=== PATIENT | male | born 1945 | race Caucasian/White ===

== ENCOUNTER 2016-10-18 17:24 | Emergency (ER) | payer OTHER ==
[~2016-10-18] VITALS: Ht 167.6 cm; Wt 86.2 kg
[~2016-10-18 17:24] MED LIST: 'PARAFON FORTE500 M1 PO; ALBUTEROL0.09 MG/A2 INH; ALBUTEROL0.09 MG/Ac IH; ASPIRIN81 MG PO; CETIRIZINE10 MG PO; Eliquis PO; GLUCOPHAGE500 MG PO; GLYBURIDE5 MG PO; GUIAFENESIN PO; IBUPROFEN 30 M800 MG; INSULIN; LANTUS100 U/ML SC; LISINOPRIL20 MG PO; LOPRESSOR50 MG PO; LORATADINE10 MG PO; METFORMIN850 MG PO; MOTRIN400 MG PO; MOTRIN800 MG PO; MULTAQ400 MG PO; MULTIVITAMIN1 TA1 PO; NAPROSYN500 MG PO; NEURONTIN400 MG PO; NORCO 325 MG-51 TAB PO; NOVOLOG FLEX100 U/ML SC; NOVOLOG1 UNIT/0.0; OMEPRAZOLE20 MG PO; PRILOSEC20 MG PO; PSE PO; SIMVASTATIN20 MG PO; SPIRIVA18 MCG IH; SPIRIVA18 MCG INH; SYMBICORT; SYMBICORT1 AE1 INH; VIAGRA100 MG PO
[2016-10-18] MEDS ORDERED: CYCLOBENZAPRINE5 M3 PO (18:56)
[2016-10-18] MEDS ORDERED: NAPROSYN500 MG PO (18:56)
[2016-10-18] MEDS ORDERED: HYDROCODONE BIT1 T11 PO (18:56)
== END 2016-10-18 19:03 | disposition home or self-care (01) ==
LOC: ED 17:24
DX: M54.2 Cervicalgia (principal); R25.2 Cramp and spasm; F17.200 Nicotine dependence, unspecified, uncomplicated; Z79.899 Other long term (current) drug therapy; Z79.82 Long term (current) use of aspirin

== ENCOUNTER 2016-11-24 12:36 | Emergency (ER) | payer OTHER ==
[~2016-11-24] VITALS: Ht 167.6 cm; Wt 85.7 kg
[~2016-11-24 12:36] MED LIST changes: +CYCLOBENZAPRINE5 M3 PO; +HYDROCODONE BIT1 T11 PO; +MOTRIN 400 MG E4 TAB PO; -MOTRIN400 MG PO
[2016-11-24] MEDS ORDERED: SPIRIVA RESPIMAT4 GM INH (12:43)
[2016-11-24] MEDS ORDERED: SUNMARK OMEPRAZ20 M1 PO (12:46)
[2016-11-24] MEDS ORDERED: GRALISE300 M1 PO (12:46)
[2016-11-24] MEDS ORDERED: TUSSIN400 MG PO (12:47)
[2016-11-24 13:49] LABS: BASO # 0.1 10*3/uL (0.0-0.1); BASO % 0.9 % (0.0-1.0); EOS # 0.4 10*3/uL (0.0-0.4); EOS % 3.5 % (1.0-4.0); HEMATOCRIT 39.7 % (42.0-52.0); HEMOGLOBIN 12.9 g/dl (14.0-18.0); IG # 0.1 10*3/uL (0.0-0.1); LYMPH % 27.2 % (27.0-41.0); MEAN CELL VOLUME 96.8 fl (80.0-94.0); MEAN CORPUSCULAR HGB 31.5 pg (27.0-31.0); MEAN CORPUSCULAR HGB CONC 32.5 g/dl (33.0-37.0); MEAN PLATELET VOLUME 9.6 fl (9.6-12.3); MONO # 0.8 10*3/uL (0.1-1.0); MONO % 7.7 % (3.0-9.0); NEUT # 6.5 10*3/uL (2.3-7.9); PLATELET COUNT AUTOMATED 320 10*3/uL (130-400); RED CELL DISTRI WIDTH 13.5 % (0-14.5); WHITE BLOOD COUNT 10.9 10*3/uL (4.8-10.8)
[2016-11-24 13:57] LABS: ALKALINE PHOSPHATASE 158 U/L (45-117); BILIRUBIN, TOTAL 0.2 mg/dl (0.2-1.0); BUN 14 mg/dl (7-24); CARBON DIOXIDE 27 mmol/L (21-32); CHLORIDE 99 mmol/L (98-107); EST GLOM FILT AFRICAN AMERICAN > 60 ml/min; GLUCOSE 285 mg/dL (65-99); POTASSIUM 4.4 mmol/L (3.5-5.1); SGOT/AST 67 IU/L (3-35); SGPT/ALT 85 U/L (12-78); SODIUM 136 mmol/L (136-145); TOTAL PROTEIN 7.9 gm/dL (6.4-8.2)
[2016-11-24 16:18] LABS: BILIRUBIN NEGATIVE (NEGATIVE); BLOOD NEGATIVE (NEGATIVE); CLARITY CLEAR (CLEAR); COLOR YELLOW (YELLOW); GLUCOSE 2+ (NEGATIVE); KETONE NEGATIVE (NEGATIVE); LEUKO ESTERASE NEGATIVE (NEGATIVE); NITRITE NEGATIVE (NEGATIVE); PROTEIN TRACE (NEGATIVE); UROBILINOGEN 0.2 E.U./dl (0.2-1.0)
[2016-11-24 16:34] LABS: BACTERIA TRACE; EPITHELIAL CELLS 0-2; MUCOUS 1+; URINE REFLEX COMMENT NO (NO); WBC 0-2 wbc/hpf (0-5)
== END 2016-11-24 16:01 | disposition home or self-care (01) ==
LOC: ED 12:36
PROVIDERS: Emergency Medicine
DX: R73.9 Hyperglycemia, unspecified (principal); I48.91 Unspecified atrial fibrillation; E11.9 Type 2 diabetes mellitus without complications; F17.200 Nicotine dependence, unspecified, uncomplicated; Z79.82 Long term (current) use of aspirin; Z79.4 Long term (current) use of insulin; Z79.899 Other long term (current) drug therapy

== ENCOUNTER 2017-08-16 14:06 | Inpatient (IN) | payer OTHER ==
[2017-08-16] VITALS (7 sets, daily range): BP systolic 111–136; BP diastolic 68–83
[~2017-08-16] VITALS: Ht 167.6 cm; Wt 90.5 kg
[~2017-08-16 14:06] MED LIST changes: +GRALISE300 M1 PO; +LANTUS SOL100 UNIT/1 SQ; -LANTUS100 U/ML SC; +SPIRIVA RESPIMAT4 GM INH; +SUNMARK OMEPRAZ20 M1 PO; +TUSSIN400 MG PO
[2017-08-16 14:55] LABS: BASO # 0.1 10*3/uL (0.0-0.1); BASO % 0.8 % (0.0-1.0); EOS # 0.4 10*3/uL (0.0-0.4); EOS % 3.1 % (1.0-4.0); HEMATOCRIT 43.5 % (42.0-52.0); HEMOGLOBIN 13.9 g/dl (14.0-18.0); LYMPH # 2.6 10*3/uL (1.3-4.4); MEAN CELL VOLUME 88.1 fl (80.0-94.0); MEAN CORPUSCULAR HGB 28.1 pg (27.0-31.0); MEAN PLATELET VOLUME 9.3 fl (9.6-12.3); MONO # 0.8 10*3/uL (0.1-1.0); MONO % 6.2 % (3.0-9.0); NEUT # 8.9 10*3/uL (2.3-7.9); NEUT % 69.4 % (47.0-73.0); PLATELET COUNT AUTOMATED 341 10*3/uL (130-400); RED BLOOD COUNT 4.94 10*6/uL (4.50-5.90); WHITE BLOOD COUNT 12.8 10*3/uL (4.8-10.8)
[2017-08-16 15:03] LABS: ACT PARTIAL THROMBO TIME 27.2 SECONDS (20.8-31.5)
[2017-08-16 15:14] LABS: ALBUMIN 3.2 gm/dl (3.1-4.5); ALKALINE PHOSPHATASE 121 U/L (45-117); BUN 14 mg/dl (7-24); CHLORIDE 96 mmol/L (98-107); LIPASE 116 U/L (73-393); POTASSIUM 3.6 mmol/L (3.5-5.1); SGOT/AST 30 IU/L (3-35); SGPT/ALT 36 U/L (12-78); SODIUM 134 mmol/L (136-145)
[2017-08-16 15:18] LABS: TROPONIN I < 0.015 ng/ml (<0.045)
[2017-08-17] VITALS: BP 122/58
[2017-08-17 06:39] LABS: BASO # 0.1 10*3/uL (0.0-0.1); BASO % 0.8 % (0.0-1.0); EOS # 0.4 10*3/uL (0.0-0.4); EOS % 3.4 % (1.0-4.0); HEMATOCRIT 41.1 % (42.0-52.0); HEMOGLOBIN 13.2 g/dl (14.0-18.0); LYMPH # 2.2 10*3/uL (1.3-4.4); LYMPH % 17.8 % (27.0-41.0); MEAN CELL VOLUME 87.8 fl (80.0-94.0); MEAN CORPUSCULAR HGB 28.2 pg (27.0-31.0); MEAN CORPUSCULAR HGB CONC 32.1 g/dl (33.0-37.0); MEAN PLATELET VOLUME 9.5 fl (9.6-12.3); MONO # 0.9 10*3/uL (0.1-1.0); MONO % 7.3 % (3.0-9.0); NEUT # 8.7 10*3/uL (2.3-7.9); NEUT % 70.2 % (47.0-73.0); PLATELET COUNT AUTOMATED 328 10*3/uL (130-400); RED BLOOD COUNT 4.68 10*6/uL (4.50-5.90); RED CELL DISTRI WIDTH 15.3 % (0-14.5); WHITE BLOOD COUNT 12.4 10*3/uL (4.8-10.8)
[2017-08-17 07:09] LABS: ALBUMIN 2.9 gm/dl (3.1-4.5); ALKALINE PHOSPHATASE 114 U/L (45-117); BUN 11 mg/dl (7-24); CHLORIDE 101 mmol/L (98-107); CHOLESTEROL 171 mg/dL (<200); CREATININE 0.75 mg/dL (0.70-1.30); FREE T4 1.15 ng/dl (0.76-1.46); HDL CHOLESTEROL 24 mg/dl (40-60); LDL CHOLESTEROL 121 mg/dL (9-159); PHOSPHOROUS 3.3 mg/dL (2.5-4.9); POTASSIUM 3.9 mmol/L (3.5-5.1); SGOT/AST 26 IU/L (3-35); SGPT/ALT 32 U/L (12-78); SODIUM 137 mmol/L (136-145); TOTAL PROTEIN 8.1 gm/dL (6.4-8.2); TRIGLYCERIDES 130 mg/dl (<150); VLDL CHOLESTEROL 26 mg/dL (6-40)
[2017-08-17 07:59] LABS: VITAMIN D, 25-HYDROXY 20.5 ng/mL (30-100)
[2017-08-17 08:00] VITALS: BP 125/67
[2017-08-17] MEDS ORDERED: BUPROPION HCL100 M2 PO (11:33)
[2017-08-17] MEDS ORDERED: ARICEPT10 M1 PO (11:35)
[2017-08-17] MEDS ORDERED: [UNRECOGNIZED DRUG - OTHER] T (11:35)
[2017-08-17] MEDS ORDERED: LOPRESSOR50 M1 PO (11:38)
[2017-08-17] MEDS ORDERED: NAMENDA5 M1 PO (11:38)
[2017-08-17] MEDS ORDERED: ONGLYZA5 MG PO (11:39)
[2017-08-17 12:00] VITALS: BP 130/76
[2017-08-17 16:00] VITALS: BP 122/73
[2017-08-17 20:00] VITALS: BP 148/69
[2017-08-18] VITALS: BP 122/72
[2017-08-18 05:57] LABS: BASO # 0.1 10*3/uL (0.0-0.1); EOS # 0.4 10*3/uL (0.0-0.4); EOS % 3.8 % (1.0-4.0); HEMATOCRIT 41.3 % (42.0-52.0); HEMOGLOBIN 13.5 g/dl (14.0-18.0); LYMPH # 2.6 10*3/uL (1.3-4.4); LYMPH % 24.3 % (27.0-41.0); MEAN CELL VOLUME 87.9 fl (80.0-94.0); MEAN CORPUSCULAR HGB 28.7 pg (27.0-31.0); MEAN CORPUSCULAR HGB CONC 32.7 g/dl (33.0-37.0); MEAN PLATELET VOLUME 9.4 fl (9.6-12.3); MONO # 0.8 10*3/uL (0.1-1.0); MONO % 7.5 % (3.0-9.0); NEUT # 6.6 10*3/uL (2.3-7.9); NEUT % 62.8 % (47.0-73.0); PLATELET COUNT AUTOMATED 324 10*3/uL (130-400); RED CELL DISTRI WIDTH 15.3 % (0-14.5); WHITE BLOOD COUNT 10.6 10*3/uL (4.8-10.8)
[2017-08-18 08:00] VITALS: BP 130/75
[2017-08-18 12:00] VITALS: BP 128/69
[2017-08-18] MEDS ORDERED: VITAMIN D-32000 UNIT PO (14:32)
[2017-08-18] MEDS ORDERED: CEPACOL SORE T1 EACH MM (14:32)
[2017-08-18] MEDS ORDERED: LEVAQUIN500 M2 PO (14:33)
[2017-08-18] MEDS ORDERED: MUCINEX DM ER1 EACH PO (14:33)
== END 2017-08-18 15:38 | disposition home or self-care (01) | DRG 871 ==
LOC: ED 14:06 → EDHOLD 16:36 → 5E 16:36 → EDHOLD 17:00 → 5E 17:06
PROVIDERS: Emergency Medicine; Internal Medicine Hospice and Palliative Medicine
DX: A41.9 Sepsis, unspecified organism (principal); J96.01 Acute respiratory failure with hypoxia; E11.42 Type 2 diabetes mellitus with diabetic polyneuropathy; J15.6 Pneumonia due to other Gram-negative bacteria; I48.1 Persistent atrial fibrillation; E11.40 Type 2 diabetes mellitus with diabetic neuropathy, unspecified; E87.1 Hypo-osmolality and hyponatremia; E44.1 Mild protein-calorie malnutrition; J44.0 Chronic obstructive pulmonary disease with (acute) lower respiratory infection; E11.65 Type 2 diabetes mellitus with hyperglycemia; E87.8 Other disorders of electrolyte and fluid balance, not elsewhere classified; R65.20 Severe sepsis without septic shock; Z96.1 Presence of intraocular lens; K21.9 Gastro-esophageal reflux disease without esophagitis; J30.2 Other seasonal allergic rhinitis; F17.200 Nicotine dependence, unspecified, uncomplicated; I10 Essential (primary) hypertension; E78.2 Mixed hyperlipidemia; D64.9 Anemia, unspecified; E66.09 Other obesity due to excess calories; Z68.32 Body mass index [BMI] 32.0-32.9, adult; Z79.82 Long term (current) use of aspirin; Z79.899 Other long term (current) drug therapy; Z90.49 Acquired absence of other specified parts of digestive tract; Z71.6 Tobacco abuse counseling; Z98.49 Cataract extraction status, unspecified eye; Z79.4 Long term (current) use of insulin; Z79.51 Long term (current) use of inhaled steroids; Z80.1 Family history of malignant neoplasm of trachea, bronchus and lung; Z82.49 Family history of ischemic heart disease and other diseases of the circulatory system

== ENCOUNTER 2017-12-06 11:15 | Inpatient (IN) | payer OTHER ==
[~2017-12-06] VITALS: Ht 167.6 cm; Wt 89.9 kg
[2017-12-06] VITALS (7 sets, daily range): BP systolic 149–169; BP diastolic 67–89
--- NOTE | ~2017-12-06 | CON ---
[place], [place] REPORT OF CONSULTATION [id number] UN[facility] #: [id number] ROOM: 506 DOCTOR: CARMENCITA PITTMAN MDAUBREY BIRTHDATE: [birth year] DOS: 12/07/2017 PULMONARY CONSULTATION, EVALUATION AND MANAGEMENT REASON FOR CONSULTATION: To assess the patient's current abnormal symptoms. Assessment for shortness of breath and others. HISTORY OF PRESENT ILLNESS: This is a 72-year-old white male patient who was admitted to the hospital under care of the hospitalist service who was asked to be seen by me. The patient reported symptoms of having increased shortness of breath a little over a month. Shortness of breath has been noted over the past 1 month, which has been noted with gradual increase and getting worse. The patient was also noted with general weakness and fatigue. He was reporting symptoms of having cough with white sputum expectoration, but there was no hemoptysis reported by the patient. He has not been noted any symptoms of wheezing. The patient denies symptoms of chest pain with that. The patient came into the hospital for further assessment. He was also reported some GI symptoms. REVIEW OF SYSTEMS: CONSTITUTIONAL SYMPTOMS: Fatigue and tiredness noted without any symptoms of fever or chills. EYES: Denies burning, discharge, redness, or decreased visual acuity. EARS, NOSE, AND THROAT SYMPTOMS: Denies sore throat, hoarseness, otalgia, postnasal drainage, or epistaxis. CARDIOVASCULAR SYSTEM: Noted with increasing edema of the lower extremities and the ankles recently. Denies symptoms of palpitation or anginal pain. GASTROINTESTINAL SYMPTOMS: Reports "hardening of the abdomen," but there were no symptoms of nausea, vomiting, diarrhea, abdominal pain, hematemesis, melena, hematochezia, dysphagia, or abnormal weight loss reported. GENITOURINARY SYMPTOMS: No dysuria, urinary incontinence, or hematuria. MUSCULOSKELETAL: No acute joint pain, redness, or tenderness. SKIN: Denies any abnormal lesions or rashes. CENTRAL NERVOUS SYSTEM: No dizziness, headache, diplopia, focal neurologic deficit, or tingling sensation. Remaining systems were reviewed. They were noted all negative. PAST MEDICAL HISTORY: The patient was known with: 1. History of chronic obstructive pulmonary disease. 2. Mixed hyperlipidemia. 3. Peripheral neuropathy. 4. Paroxysmal atrial fibrillation. 5. Nicotine dependence. 6. Type 2 diabetes mellitus. 7. History of peripheral neuropathy. 8. Gastroesophageal reflux. 9. Vitamin D deficiency. PAST SURGICAL HISTORY: 1. Lumbar laminectomy. [place], [place] REPORT OF CONSULTATION NAME: YANA MONTOYA UNIT #: [id number] ROOM: [facility] DOCTOR: AUBREY GARDNER MD BIRTHDATE: [birth year] 2. Left forearm fracture repair. 3. Appendectomy. 4. Cataract extraction with lens implantation bilaterally. 5. Tonsillectomy as a child. SOCIAL HISTORY: The patient stated that he lives at home. , has 2 children. He was using about 4 cans of beers a day. Tobacco use noted since teenager about a pack of cigarettes per day to half a pack of cigarettes at this time. FAMILY HISTORY: Father at 60 due to complication of lung cancer. Mother with complication related to chronic alcoholism at the age of 46-year-old, also known with coronary artery disease and myocardial infarction. HOME MEDICATIONS: Reported as use of vitamin D, Mucinex DM, Proventil HFA, Motrin, Lantus insulin, BuSpar, Aricept, Namenda, metoprolol tartrate, Onglyza, pravastatin, glipizide, vitamin B12, multivitamin with iron and folic acid combination, lisinopril, aspirin, cetirizine, Spiriva, gabapentin, and omeprazole. DRUG ALLERGIES: REPORTED ALLERGY TO HYDROCHLOROTHIAZIDE. PHYSICAL EXAMINATION: GENERAL: This is a 72-year-old male who has been currently lying in the bed without any acute distress. VITAL SIGNS: The patient's height was recorded as 5 feet 6 inches, weight of 92 kg, BMI 32.7. The patient noted as normal temperature, respiratory rate 24-16, heart rate of 63-85, blood pressure 169/76-144/69. Pulse oxygen saturation on 4 liters nasal cannula 94% saturation. HEENT: Head was atraumatic. Eyes were noted without any acute icterus. NECK: Supple. Oral mucosa was moist. CARDIOVASCULAR: S1, S2 is audible. LUNGS: The patient was noted with decreased breath sounds in the lungs bilaterally noted on the left and the right side with scattered crackles in the lungs noted diffusely. There was no wheezing heard. ABDOMEN: Noted with [id number] distention. Bowel sounds present. There was no tenderness. EXTREMITIES: The patient was noted without any acute edema at this time of examination. VISIBLE SKIN: No lesions or rashes. MUSCULOSKELETAL: Without any acute deformities. CENTRAL NERVOUS SYSTEM: Cranial nerves 2-12 intact. No focal deficit. LABORATORY DATA: CBC on admission of 12/06/2017, WBC count 13.4, hemoglobin 12.3, hematocrit normal, platelet count normal. Lactic acid 2.1 on admission yesterday. CMP of the patient on 12/06/2017, glucose 157, BUN and creatinine were normal. The PT and PTT were noted as normal PT and PTT yesterday. Arterial blood gas that was done yesterday, pH is 7.36, pCO2 of 53.9, pO2 of 56.5 on 2 liters nasal cannula. CBC that was done this morning, WBC count 12.3, hemoglobin 12.5, platelet count 412,000. CMP this morning, BUN 26, creatinine [place], [place] REPORT OF CONSULTATION NAME: YANA MONTOYA UNIT #: [id number] ROOM: [facility] DOCTOR: CARMENCITA PITTMAN MD,[facility] BIRTHDATE: [birth year] normal, glucose 267. The chest x-ray that was reviewed previously on 08/16/2017 showed mild cardiomegaly and hyperinflation changes of COPD. The chest x-ray that was done for the patient on 12/06/2017 was noted with loculated pleural fluid noted in the left side with increased interstitial markings bilaterally, possibly a patchy infiltration and interstitial lung disease would be considered. Right lung appeared to be otherwise clear. Changes of COPD were observed. Film was also noted partially rotated towards the right. IMPRESSION: 1. The patient will be currently admitted to the hospital with ongoing respiratory symptoms at this time with current pleural fluid in the left side noted with interstitial lung disease. Possible consideration for congestive heart failure or other etiologies to be considered at the present time as well including for malignancy, pneumonia and all of the above. 2. Long-term tobacco use. 3. Family history of lung cancer was noted in his dad. 4. History of long-term nicotine dependence as well. 5. Chronic obstructive pulmonary disease was also noted with acute exacerbation on current admission. 6. Possibility of congestive heart failure with peripheral edema. Rather right or left-sided heart failure has been considered. 7. Acute hypoxic respiratory failure secondary to all of the above. PLAN OF MANAGEMENT: The patient will be continued on diuretics and corticosteroids. Monitor hyperglycemia related to corticosteroid use and history of diabetes mellitus. Sputum for Gram stain and culture. CT scan of the chest was ordered for the patient as a CTA of the chest for more clear assessment of underlying lung problem and for further assessment and recommendation accordingly. Bronchodilator to be continued. Avoid excessive diuretic use for the patient to prevent any worsening of the kidney function. Monitor electrolytes. DVT prophylaxis. Nicotine replacement patches will be ordered for the patient as well. Other additional treatment changes and assessment will be done based on progression of current illness and available new data for this patient results including CT scan of the chest, which was ordered this morning to be done this afternoon for patient with intravenous contrast. Thank you for allowing me to participate in the care of this patient. [place], [place] REPORT OF CONSULTATION NAME: YANA MONTOYA UNIT #: [id number] ROOM: 506 DOCTOR: AUBREY GARDNER MD BIRTHDATE: [birth year] AUBREY TSE MD CM:CONSTR:REPORT OF CONSULTATION 1414 12/18/17 1026 interface
--- NOTE | ~2017-12-06 | EKG ---
[place], [place] ELECTROCARDIOGRAM REPORT NAME: YANA MONTOYA UNIT #: [id number] ROOM: [facility] DOCTOR: JOE DRAFT REPORT BIRTHDATE: [birth year] [facility] Test Date: 2017-12-06 Test Time: 11:45:18 Pat Name: YANA MONTOYA Department: Room: Gender: [employer] Captain: : 1945 Requested By: ALBINA RAI PA-C Order Number: [id number] Reading MD: Homer Martínez MD Measurements Intervals [place] Rate: 70 P: 62 IN: 247 QRS: 34 QRSD: 110 T: 59 QT: 422 QTc: 456 Interpretive Statements Sinus rhythm with 1st degree AVB Electronically Signed On 12-08-2017 11:02:20 PDT by Homer Martínez MD CM:EKGRPT:ELECTROCARDIOGRAM REPORT [id number] ALBINA RAI PA-C EPIPHANY DRAFT REPORT ALBINA RAI PA-C
--- NOTE | ~2017-12-06 | PR ---
[place], [place] PROGRESS NOTE NAME: YANA MONTOYA [facility] #: [id number] UNIT #: [id number] ROOM: 506 DOCTOR: CARMENCITA PITTMAN MDAUBREY BIRTHDATE: [birth year] DOS: 12/08/2017 PULMONARY PROGRESS NOTE SUBJECTIVE: The patient was seen and examined on 12/08/2017. He has been noted comfortable. He has been still noted with general weakness. He continues with symptoms of shortness of breath. Cough has been noted mild intermittently. There were no symptoms of chest pain or any hemoptysis. Denies symptoms of abdominal pain. Denies symptoms of nausea, vomiting or any abdominal pain. The patient denies symptoms of hematuria or dizziness. General weakness and fatigue were still noted. Remaining systems were reviewed, they were noted all negative. OBJECTIVE: VITAL SIGNS: Showed normal temperature, respiratory rate 18, heart rate 85. Blood pressure 122/53 to 109/72. Pulse oxygen saturation of the patient on 4-1/2 liters nasal cannula was 94-95% saturation. HEENT: Shows head was atraumatic, eyes nonicterus. NECK: Supple. CARDIOVASCULAR: S1, S2 audible. LUNGS: The patient was noted with decreased breath sounds, left side of the chest. Mild to moderate decreased air entry otherwise noted. ABDOMEN: Soft, nontender. Bowel sounds present. EXTREMITIES: Without any acute edema. No clubbing or cyanosis. CENTRAL NERVOUS SYSTEM: No gross focal neurologic deficit. MUSCULOSKELETAL: Noted no deformity. SKIN: No lesions or rashes. LABORATORY AND DIAGNOSTIC DATA: Echocardiogram that was completed yesterday was reported by the radiologist as stage 1 abnormal relaxation pattern, diastolic dysfunction, left ventricular ejection of 60% without any major valvular abnormalities. CT of the chest was completed yesterday without pulmonary embolism, multiple nodules noted, different sizes with index nodule measured for this patient in the right upper lobe 1.3 cm and at least one of the nodules noted cavitary. The pleural fluid was noted loculated, significant compression and atelectasis in left lower lobe. Lymphadenopathy was also noted. IMPRESSION: 1. The patient with the current finding consistent highly with metastatic malignancy, may be originating from the lung; however, other sources of metastatic disease cannot be excluded. 2. Current loculated pleural fluid, most likely a malignant process and a pneumonia combination, both would be considered. 3. Overall illness of the patient which has been ongoing for several weeks does explain the current CT scan findings. PLAN OF MANAGEMENT: The patient needs to be transferred to another facility for VATS procedure and also further appropriate workup for the current suspected malignancy and the left pleural fluid. Case will be discussed with the primary [place], [place] PROGRESS NOTE NAME: YANA MONTOYA UNIT #: [id number] ROOM: 506 DOCTOR: CARMENCITA PITTMAN MD,AUBREY BIRTHDATE: [birth year] care attending of this patient for making arrangements of discharge. The patient agreed to be transferred to [facility] for further care. AUBREY TSE MD CM:PNTRANS [id number] AUBREY PITTMAN MD 12/08/17 0920 interface
[~2017-12-06 11:15] MED LIST changes: -ALBUTEROL0.09 MG/Ac IH; +ARICEPT10 M1 PO; +BUPROPION HCL100 M2 PO; +CEPACOL SORE T1 EACH MM; +LEVAQUIN500 M2 PO; +LOPRESSOR50 M1 PO; +MUCINEX DM ER1 EACH PO; +NAMENDA5 M1 PO; +ONGLYZA5 MG PO; +PROVENTIL HFA6.7 GM INH; +VITAMIN D-32000 UNIT PO; +[UNRECOGNIZED DRUG - OTHER] T
[2017-12-06 11:50] LABS: BASO # 0.1 10*3/uL (0.0-0.1); BASO % 0.7 % (0.0-1.0); EOS # 0.2 10*3/uL (0.0-0.4); EOS % 1.4 % (1.0-4.0); HEMATOCRIT 41.3 % (42.0-52.0); HEMOGLOBIN 12.3 g/dl (14.0-18.0); LYMPH # 2.1 10*3/uL (1.3-4.4); LYMPH % 15.4 % (27.0-41.0); MEAN CELL VOLUME 86.2 fl (80.0-94.0); MEAN CORPUSCULAR HGB 25.7 pg (27.0-31.0); MEAN CORPUSCULAR HGB CONC 29.8 g/dl (33.0-37.0); MEAN PLATELET VOLUME 9.4 fl (9.6-12.3); MONO # 0.8 10*3/uL (0.1-1.0); MONO % 5.6 % (3.0-9.0); NEUT # 10.2 10*3/uL (2.3-7.9); NEUT % 76.5 % (47.0-73.0); PLATELET COUNT AUTOMATED 372 10*3/uL (130-400); RED BLOOD COUNT 4.79 10*6/uL (4.50-5.90); RED CELL DISTRI WIDTH 17.8 % (0-14.5); WHITE BLOOD COUNT 13.4 10*3/uL (4.8-10.8)
[2017-12-06 11:59] LABS: ACT PARTIAL THROMBO TIME 29.2 SECONDS (20.8-31.5)
[2017-12-06 12:06] LABS: ALKALINE PHOSPHATASE 105 U/L (45-117); BUN 16 mg/dl (7-24); CHLORIDE 102 mmol/L (98-107); CREATININE 0.96 mg/dL (0.70-1.30); POTASSIUM 3.6 mmol/L (3.5-5.1); SGOT/AST 22 IU/L (3-35); SGPT/ALT 14 U/L (12-78); SODIUM 141 mmol/L (136-145); TOTAL PROTEIN 8.6 gm/dL (6.4-8.2)
[2017-12-06 12:08] LABS: TROPONIN I < 0.015 ng/ml (<0.045)
[2017-12-06 13:38] LABS: ABG BASE EXCESS 3.8 mmol/L (-2.0-2.0); ABG O2 SATURATION 88.8 % (95-97); ARTERIAL BLOOD GAS PCO2 53.9 mmHg (35-45); ARTERIAL BLOOD GAS PH 7.362 (7.35-7.45); ARTERIAL BLOOD GAS PO2 56.5 mmHg (80-90)
[2017-12-06 14:04] LABS: BILIRUBIN NEGATIVE (NEGATIVE); BLOOD NEGATIVE (NEGATIVE); CLARITY CLEAR (CLEAR); COLOR YELLOW (YELLOW); GLUCOSE NEGATIVE (NEGATIVE); KETONE NEGATIVE (NEGATIVE); LEUKO ESTERASE NEGATIVE (NEGATIVE); NITRITE NEGATIVE (NEGATIVE); UROBILINOGEN 0.2 E.U./dl (0.2-1.0)
[2017-12-06 14:24] LABS: EPITHELIAL CELLS 0-2; WBC 0-2 wbc/hpf (0-5)
[2017-12-06] MEDS ORDERED: PRAVASTATIN SOD10 MG PO (14:56)
[2017-12-06] MEDS ORDERED: EUCERIN, DERMA120 GM PO (15:00)
[2017-12-06] MEDS ORDERED: MUCUS RELIEF400 MG PO (15:02)
[2017-12-06] MEDS ORDERED: GLUCOTROL10 MG PO (15:03)
[2017-12-06] MEDS ORDERED: VITAMIN B-12100 MCG PO (15:04)
[2017-12-06] MEDS ORDERED: CENTRUM ADULTS1 EACH PO (15:05)
[2017-12-07] VITALS: BP 144/68
[2017-12-07 06:27] LABS: BASO % 0.1 % (0.0-1.0); HEMATOCRIT 41.6 % (42.0-52.0); HEMOGLOBIN 12.5 g/dl (14.0-18.0); LYMPH # 0.8 10*3/uL (1.3-4.4); LYMPH % 6.7 % (27.0-41.0); MEAN CELL VOLUME 84.6 fl (80.0-94.0); MEAN CORPUSCULAR HGB 25.4 pg (27.0-31.0); MEAN PLATELET VOLUME 9.6 fl (9.6-12.3); MONO # 0.7 10*3/uL (0.1-1.0); NEUT # 10.7 10*3/uL (2.3-7.9); NEUT % 86.7 % (47.0-73.0); PLATELET COUNT AUTOMATED 412 10*3/uL (130-400); RED BLOOD COUNT 4.92 10*6/uL (4.50-5.90); RED CELL DISTRI WIDTH 17.4 % (0-14.5); WHITE BLOOD COUNT 12.3 10*3/uL (4.8-10.8)
[2017-12-07 06:38] LABS: ALBUMIN 2.9 gm/dl (3.1-4.5); ALKALINE PHOSPHATASE 106 U/L (45-117); CHLORIDE 98 mmol/L (98-107); CHOLESTEROL 142 mg/dL (<200); CREATININE 1.17 mg/dL (0.70-1.30); HDL CHOLESTEROL 31 mg/dl (40-60); LDL CHOLESTEROL 94 mg/dL (9-159); PHOSPHOROUS 3.2 mg/dL (2.5-4.9); POTASSIUM 3.9 mmol/L (3.5-5.1); SGOT/AST 9 IU/L (3-35); SGPT/ALT 14 U/L (12-78); SODIUM 139 mmol/L (136-145); TOTAL PROTEIN 8.8 gm/dL (6.4-8.2); TRIGLYCERIDES 84 mg/dl (<150); VLDL CHOLESTEROL 17 mg/dL (6-40)
[2017-12-07 06:49] LABS: BUN 26 mg/dl (7-24)
[2017-12-07 08:00] VITALS: BP 150/74
[2017-12-07 12:00] VITALS: BP 154/79
[2017-12-07 16:00] VITALS: BP 148/86
[2017-12-07 20:00] VITALS: BP 109/72
[2017-12-08] VITALS: BP 122/53
[2017-12-08 08:00] VITALS: BP 115/66
[2017-12-08 08:31] LABS: BASO % 0.1 % (0.0-1.0); HEMATOCRIT 47.5 % (42.0-52.0); LYMPH # 1.6 10*3/uL (1.3-4.4); LYMPH % 7.9 % (27.0-41.0); MEAN CELL VOLUME 85.9 fl (80.0-94.0); MEAN CORPUSCULAR HGB 25.3 pg (27.0-31.0); MEAN CORPUSCULAR HGB CONC 29.5 g/dl (33.0-37.0); MEAN PLATELET VOLUME 9.5 fl (9.6-12.3); MONO # 1.2 10*3/uL (0.1-1.0); MONO % 6.1 % (3.0-9.0); NEUT # 16.9 10*3/uL (2.3-7.9); NEUT % 85.3 % (47.0-73.0); PLATELET COUNT AUTOMATED 500 10*3/uL (130-400); RED BLOOD COUNT 5.53 10*6/uL (4.50-5.90); RED CELL DISTRI WIDTH 17.7 % (0-14.5); WHITE BLOOD COUNT 19.8 10*3/uL (4.8-10.8)
[2017-12-08 08:48] LABS: BUN 27 mg/dl (7-24); CHLORIDE 94 mmol/L (98-107); CREATININE 1.05 mg/dL (0.70-1.30); POTASSIUM 3.8 mmol/L (3.5-5.1); SODIUM 138 mmol/L (136-145)
== END 2017-12-08 11:03 | disposition short-term general hospital (02) | DRG 871 ==
LOC: ED 11:15 → 5E 13:08 → EDHOLD 13:08 → 5E 13:13
PROVIDERS: Internal Medicine; Physician Assistant
DX: A41.9 Sepsis, unspecified organism (principal); J96.21 Acute and chronic respiratory failure with hypoxia; J90 Pleural effusion, not elsewhere classified; J18.1 Lobar pneumonia, unspecified organism; E87.2 Acidosis; J91.8 Pleural effusion in other conditions classified elsewhere; E11.40 Type 2 diabetes mellitus with diabetic neuropathy, unspecified; B35.3 Tinea pedis; J96.22 Acute and chronic respiratory failure with hypercapnia; E44.1 Mild protein-calorie malnutrition; J44.1 Chronic obstructive pulmonary disease with (acute) exacerbation; J44.0 Chronic obstructive pulmonary disease with (acute) lower respiratory infection; R65.20 Severe sepsis without septic shock; I44.0 Atrioventricular block, first degree; D63.8 Anemia in other chronic diseases classified elsewhere; I50.9 Heart failure, unspecified; I11.0 Hypertensive heart disease with heart failure; R91.1 Solitary pulmonary nodule; Z96.1 Presence of intraocular lens; K21.9 Gastro-esophageal reflux disease without esophagitis; E78.2 Mixed hyperlipidemia; I48.0 Paroxysmal atrial fibrillation; E66.8 Other obesity; Z60.2 Problems related to living alone; Z79.899 Other long term (current) drug therapy; Z79.4 Long term (current) use of insulin; Z79.82 Long term (current) use of aspirin; Z90.49 Acquired absence of other specified parts of digestive tract; Z90.89 Acquired absence of other organs; Z98.49 Cataract extraction status, unspecified eye; Z82.49 Family history of ischemic heart disease and other diseases of the circulatory system; Z71.6 Tobacco abuse counseling; Z72.0 Tobacco use; Z80.1 Family history of malignant neoplasm of trachea, bronchus and lung; Z81.1 Family history of alcohol abuse and dependence; Z88.8 Allergy status to other drugs, medicaments and biological substances; Z68.32 Body mass index [BMI] 32.0-32.9, adult

== ENCOUNTER 2018-06-02 01:43 | Inpatient (IN) | payer OTHER ==
[~2018-06-02] VITALS: Ht 167.6 cm; Wt 84.0 kg
--- NOTE | ~2018-06-02 | EKG ---
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
[~2018-06-02 01:43] MED LIST changes: +CENTRUM ADULTS1 EACH PO; +CHANTIX1 M1 PO; +EUCERIN, DERMA120 GM PO; +GLUCOTROL10 MG PO; +K-TAB20 MEQ PO; +LASIX40 MG PO; +LEVAQUIN750 M1 PO; +LISINOPRIL10 M1 PO; -LISINOPRIL20 MG PO; +MUCUS RELIEF400 MG PO; +PRAVASTATIN SOD10 MG PO; +PREDNISONE10 MG PO; +VITAMIN B-12100 MCG PO
[2018-06-02 01:45] VITALS: BP 95/55
[2018-06-02 02:42] LABS: BASO # 0.1 10*3/uL (0.0-0.1); BASO % 0.6 % (0.0-1.0); EOS # 0.5 10*3/uL (0.0-0.4); EOS % 2.8 % (1.0-4.0); HEMOGLOBIN 12.1 g/dl (14.0-18.0); LYMPH # 2.6 10*3/uL (1.3-4.4); LYMPH % 14.9 % (27.0-41.0); MEAN CELL VOLUME 85.9 fl (80.0-94.0); MEAN CORPUSCULAR HGB 26.7 pg (27.0-31.0); MEAN PLATELET VOLUME 9.1 fl (9.6-12.3); MONO # 1.1 10*3/uL (0.1-1.0); MONO % 6.2 % (3.0-9.0); PLATELET COUNT AUTOMATED 458 10*3/uL (130-400); RED BLOOD COUNT 4.54 10*6/uL (4.50-5.90); RED CELL DISTRI WIDTH 19.4 % (0-14.5); WHITE BLOOD COUNT 17.3 10*3/uL (4.8-10.8)
--- NOTE | 2018-06-02 02:48 | NUR ---
TREMORS NOTED TO BILATERAL UPPER EXTREMITIES. PATIENT STATES THIS IS A NEW ONSERT THAT STARTED A FEW DAYS AGO.
[2018-06-02 02:56] LABS: ALBUMIN 3.1 gm/dl (3.1-4.5); CREATININE 2.4 mg/dL (0.70-1.30); POTASSIUM 4.9 mmol/L (3.5-5.1); TOTAL PROTEIN 8.1 gm/dL (6.4-8.2)
--- NOTE | 2018-06-02 04:38 | NUR ---
PATIENT PROVIDED A URINAL. WAS UNABLE TO GIVE A URINE SPECIMEN AT THIS TIME.
[2018-06-02 05:00] VITALS: BP 106/60; BP 107/91
--- NOTE | 2018-06-02 05:00 | NUR ---
A 72, admitted to , under the services of ROSSANA Hunter DO with a diagnosis of ACUTE RENAL FAILURE UNABLE TO AMBULATE. Chief complaint is AMBULATED FROM CAB WITH CANE TO TRIAGE. PT. STATED "I CAN'T WALK" STARTED A COUPLE DAYS AGO PER PATIENT JUST GETTING WORSE.. Patient arrived via stretcher from ER. Monitor applied. Initial assessment completed. Vital signs taken and recorded. ROSSANA HUNTER DO notified of admission to the unit. Orders received. See assessment for past medical history, medications and allergies. Patient and/or family oriented to unit. [facility] visitation policy reviewed. Clothing/patient valuable form completed. REJI HOLMAN
--- NOTE | 2018-06-02 06:34 | NUR ---
SPOKE WITH DR ROMERO ABOUT THE HEPARIN BEING ORDERED. INFORMED NO APTT ORDERED. WILL ORDER LAB WORK PRIOR TO INITIATING HEPARIN PROTOCOL.
[2018-06-02 08:00] VITALS: BP 104/54
[2018-06-02 12:00] VITALS: BP 94/50
[2018-06-02 14:36] LABS: ACT PARTIAL THROMBO TIME 53.1 SECONDS (20.8-31.5)
[2018-06-02 16:00] VITALS: BP 121/60
[2018-06-02 16:08] LABS: BILIRUBIN NEGATIVE (NEGATIVE); BLOOD NEGATIVE (NEGATIVE); CLARITY CLEAR (CLEAR); COLOR YELLOW (YELLOW); GLUCOSE TRACE (NEGATIVE); KETONE NEGATIVE (NEGATIVE); LEUKO ESTERASE NEGATIVE (NEGATIVE); NITRITE NEGATIVE (NEGATIVE); PH 5.5 (5.0-9.0); UROBILINOGEN 0.2 E.U./dl (0.2-1.0)
--- NOTE | 2018-06-02 16:13 | NUR ---
CALLED DR GEORGE AND EXPLAINED THAT [facility] AND DOES NOT HAVE A LIST WITH HIM NOR DOES HE KNOW WHAT MEDICATIONS HE TAKES. I PRINTED A LIST FROM HIS LAST DISCHARGE SUMMARY ALONG WITH MED CLAIM HISTORY AND UPDATED MED REC. DR GEORGE INFORMED
[2018-06-02 17:02] LABS: RBC 0-2 rbc/hpf (0-2)
[2018-06-02 17:03] LABS: BACTERIA 1+
[2018-06-02 20:00] VITALS: BP 119/57
--- NOTE | 2018-06-02 20:19 | NUR ---
PT CALLED OUT FROM THE ROOM STATING THAT HIS IV TUBING NEEDED FIXED BECAUSE IT WAS LEAKING. UPON ENTERING THE ROOM, IV IN THE RH WAS FOUND TO BE OUT. IV HEPARIN STOPPED AND SITE FOR IV WAS CHANGED. A 22G WAS PLACED IN THE RIGHT WRIST AND THE HEPARIN WAS RESTARTED.
[2018-06-03] VITALS: BP 138/71
--- NOTE | 2018-06-03 03:13 | NUR ---
24HR CHART CHECK COMPLETED.
[2018-06-03 06:25] LABS: BASO % 0.1 % (0.0-1.0); HEMATOCRIT 38.3 % (42.0-52.0); HEMOGLOBIN 11.5 g/dl (14.0-18.0); LYMPH # 0.8 10*3/uL (1.3-4.4); LYMPH % 5.6 % (27.0-41.0); MEAN CELL VOLUME 86.3 fl (80.0-94.0); MEAN CORPUSCULAR HGB 25.9 pg (27.0-31.0); MONO # 0.6 10*3/uL (0.1-1.0); MONO % 3.9 % (3.0-9.0); NEUT # 13.2 10*3/uL (2.3-7.9); NEUT % 89.8 % (47.0-73.0); PLATELET COUNT AUTOMATED 425 10*3/uL (130-400); RED BLOOD COUNT 4.44 10*6/uL (4.50-5.90); WHITE BLOOD COUNT 14.7 10*3/uL (4.8-10.8)
[2018-06-03 06:44] LABS: ALBUMIN 2.9 gm/dl (3.1-4.5); CHLORIDE 104 mmol/L (98-107); POTASSIUM 5.1 mmol/L (3.5-5.1); SODIUM 137 mmol/L (136-145)
[2018-06-03 06:46] LABS: INTERNATIONAL NORM RATIO 0.9 (2.0-3.5)
[2018-06-03 06:54] LABS: ALKALINE PHOSPHATASE 120 U/L (45-117); CHOLESTEROL 188 mg/dL (<200); CREATININE 0.96 mg/dL (0.70-1.30); FREE T4 1.05 ng/dl (0.76-1.46); HDL CHOLESTEROL 24 mg/dl (40-60); LDL CHOLESTEROL 88 mg/dL (9-159); PHOSPHOROUS 2.2 mg/dL (2.5-4.9); SGOT/AST 13 IU/L (3-35); SGPT/ALT 14 U/L (12-78); THYROID STIM HORMONE (HS) 0.693 uIU/ml (0.358-4.75); TOTAL PROTEIN 8.3 gm/dL (6.4-8.2); TRIGLYCERIDES 381 mg/dl (<150); VLDL CHOLESTEROL 76 mg/dL (6-40)
[2018-06-03 07:04] LABS: BUN 22 mg/dl (7-24)
--- NOTE | 2018-06-03 07:20 | NUR ---
APTT IS 34.9. PER HEPARIN PROTOCOL, INCREASED BY 2 UN/KG/HR. 14 UN/KG/HR AT A RATE OF 12.4ML.
--- NOTE | 2018-06-03 07:30 | NUR ---
PT AWAKE AND SITTING UP IN BED. PT STATES HE SLEPT NICELY LAST NIGHT AND HAS NO COMPLAINTS OF PAIN. ASSESSMENT COMPLETED WITH NO ABNORMAL FINDINGS. CALL LIGHT WITHIN REACH.
--- NOTE | 2018-06-03 07:40 | NUR ---
PT AWAKE AND RESTING COMFORTABLY. NO COMPLAINTS OF PAIN OR DISCOMFORT AT THIS TIME. BED LOW, CALL LIGHT WITHIN REACH.
[2018-06-03 08:07] LABS: VITAMIN D, 25-HYDROXY 16.3 ng/mL (30-100)
--- NOTE | 2018-06-03 09:03 | NUR ---
24 HR CHART CHECK COMPLETED.
[2018-06-03 12:00] VITALS: BP 144/88
--- NOTE | 2018-06-03 14:25 | NUR ---
PHYSICAL THERAPY PT EVAL COMPLETED TODAY ON LEVEL 5: FULL EVALUATION TO FOLLOW. RECOMMEND SKILLED PT WHILE HERE TO ADDRESS DECREASED STRENGTH, BALANCE, ENDURANCE AND THUS FUNCTIONAL STATUS. PT EVAL IS MODERATE COMPLEXITY BASED ON CHART REVIEW, TEST RESULTS AND EVALUATION; [id number]. D/C RECOMMENDATIONS ARE SNF ON D/C PATIENT LIVES ALONE AND IS HAVING DIFFICULTY WITH AMBULATION. IF DOES NOT MEET SNF CRITERIA WOULD RECOMMEND HOME PT. THANK YOU FOR REFERRAL SEBASTIEN CARROLL PT
[2018-06-03 16:00] VITALS: BP 140/74
--- NOTE | 2018-06-03 16:37 | NUR ---
CALLED DR GEORGE AND INFORMED HIM THAT PTS HOME MEDICATIONS HAVE NOT BEEN RESUMED. PT BP 140'S/70'S AND HR LOW 100'S PER CM.
--- NOTE | 2018-06-03 19:58 | NUR ---
PATIENT AWAKE SITTING UP IN CHAIR AT THIS TIME. PT DENIES ANY SOB, CHEST PAIN, OR GENERALIZED DISCOMFORT. O2 IN USE VIA 2L NC. WILL MONITOR. CALL LIGHT IN REACH.
[2018-06-03 20:00] VITALS: BP 147/72
[2018-06-04] VITALS: BP 120/83
--- NOTE | 2018-06-04 08:00 | NUR ---
PHYSICAL THERAPY Nursing screen noted. PT orders also recieved. Thank you. Sydney Loya,PT
--- NOTE | 2018-06-04 08:00 | NUR ---
VS-STABLE. A+OX3, SHANELL, COOPERATIVE AND PLEASANT. HEART SOUNDS NORMAL, LUNG SOUNDS DIMINSHED THROUGHOUT. ABD SOFT, NON TENDER, NON DISTENDED. BSX4, POSTIVE PEDAL PULSES, CAP REFILL <3, NON TENTING SKIN TURGOR. PAIN O OUT OF 10 ON PAIN SCALE. SKIN WARM, DRY, AND INTACT. MARY GRACE WHITE SPNRCC
[2018-06-04 08:33] VITALS: BP 148/74
--- NOTE | 2018-06-04 08:35 | NUR ---
PHYSICAL THERAPY Patient seen this am 1:1 for therapy visit and was sitting up in bedside chair upon therapist arrival. Patient voices no c/o's pain this morning with a resting HR 101 bpm. Patient performed sit to stand transfer, Min/CGA demonstrating a slow rise and no LOB. Patient ambulates SIDE PULLER/CGA, 50'x 2, demonstrating decreased stride and unsteady gait pattern during backward walk. Patient needed v/c to improve B arm swing and returned to bedside chair following gait ex. Patient HR 114 bpm as pateint remained in chair with call light, tray table and telephone. Will continue per POC as tolerated, total treatment time 17 minutes. Alexi Guillen, KNITTING DEMONSTRATOR
--- NOTE | 2018-06-04 11:09 | NUR ---
PATIENT SITTING UP IN CHAIR AT THIS TIME. VERY PLEASANT DEMEANOR. DENIES DISCOMFORT. RESP EASY. CALL LIGHT WITHIN REACH.
--- NOTE | 2018-06-04 11:30 | NUR ---
Mower Mechanic in to talk to patient. Patient states lives at HOME with ALONE. There are NO steps in the home. Physician: CHERELLE Pharmacy: [facility] Home health services: NONE Patient's level of ADLs: MODERATE ASSIST Patient has working utilities: YES DME: OXYGEN, PORTABLE TANKS, NEBULIZER, CANE Follow-up physician's appointment after d/c: WILL BE MADE BY HOSPITALIST NURSE DIRECTOR ON DISCHARGE Does patient want to access PORTAL?: NO Discharge plan PT STATES HE LIVES AT HOME ALONE, TALKED WITH HIM ABOUT HOME HEALTH OR GOING TO A FACILITY FOR REHAB. PT STATES HE WILL THINK ABOUT IT AND LET ME KNOW. STATES HE HAS BEEN HAVING DIFFICULTY GETTING AROUND AT HOME. WILL CONTINUE TO FOLLOW. . NAKUL VALENCIA
[2018-06-04 12:00] VITALS: BP 134/72; BP 154/78
--- NOTE | 2018-06-04 12:00 | NUR ---
VS STABLE. A+OX3, SHANELL, EQUAL NUT ORCHARDIST, COOPRATIVE AND PLEASANT. HEART SOUNDS NORMAL, LUNG SOUNDS DIMINSHED THOUGHOUT, BSX4, ABD SOFT, NON TENDER, AND NON DISTENDED. POSTIVE PEDAL PULSES, CAP REFILL <3 SECONDS, NON TENTING SKIN TURGOR. MARY GRACE KABA
--- NOTE | 2018-06-04 12:05 | NUR ---
CALLED TO ROOM BY PT, STATES HE IS AGREEABLE TO GO TO A FACILITY. PT PROVIDED A LIST OF LOCAL FACILITIES AND HE CHOSE [facility]. PAIRING MACHINE OPERATOR AWARE AND WILL SEND REFERRAL.
--- NOTE | 2018-06-04 12:18 | NUR ---
[facility], contacted [facility] and faxed referral; Will fax OT eval when available. Waiting on review/acceptance.
--- NOTE | 2018-06-04 13:45 | NUR ---
PHYSICAL THERAPY Patient seen this pm 1:1 for therapy visit and was resting comfortably in bedside chair following lunch, upon therapist arrival. Patient presented with continuous O2-2.5L via NC and voices no new c/o's this afternoon. Patient transfers sit to stand SBA and ambulates without AD, 100'x 2, SBA, demonstrating improved head up posture, with slow, steady gait pattern. Patient HR 92 bpm, SpO2 96% prior to treatment as patient returned to bedside chair, HR 106 bpm, SpO2 92%. Patient remained in chair with mild fatigue noted and will continue per POC as tolerated. Total treatment time 18 minutes. Alexi Guillen, AIR CONDITIONING SUPERVISOR
--- NOTE | 2018-06-04 14:50 | NUR ---
Occupational Therapy evaluation completed on 5 with full eval to follow. Patient is low complexity level 23715 via chart review, testing and evalaution. Patient reports that he wants to go to SNF as he feels weak. Recommend OT per pOC to address energy conservation, work simplification,education in diaphramatic breathing in ADLs and safety in functional mobility. Thank you for this referral. Ashley Noble OTR/L
[2018-06-04 16:00] VITALS: BP 123/84
[2018-06-04 20:00] VITALS: BP 157/83
[2018-06-05] VITALS: BP 164/56
--- NOTE | 2018-06-05 04:08 | NUR ---
PATIENT ASLEEP IN BED. RESPIRATIONS EASY. NO S/S OF DISTRESS NOTED. WILL MONITOR. CALL LIGHT LEFT IN REACH.
--- NOTE | 2018-06-05 06:15 | NUR ---
NOTIFIED OF PATIENT TAKING 55 UNITS OF LANTUS BID. DISCUSSED LAST NIGHT'S BSG OF 425 AND THIS AM'S BSG OF 238. AWARE THAT PT HAS NOT EATEN ANYTHING THROUGHOUT NIGHT AND HOME MEDS HAVE NOT BEEN ORDERED. STATES HE WILL REVIEW AND TALK TO DAY SHIFT.
[2018-06-05 06:20] LABS: BASO % 0.1 % (0.0-1.0); EOS % 0.1 % (1.0-4.0); HEMATOCRIT 38.4 % (42.0-52.0); LYMPH # 1.9 10*3/uL (1.3-4.4); LYMPH % 15.5 % (27.0-41.0); MEAN CELL VOLUME 84.8 fl (80.0-94.0); MEAN CORPUSCULAR HGB 26.5 pg (27.0-31.0); MEAN CORPUSCULAR HGB CONC 31.3 g/dl (33.0-37.0); MEAN PLATELET VOLUME 9.4 fl (9.6-12.3); MONO # 0.8 10*3/uL (0.1-1.0); MONO % 6.6 % (3.0-9.0); NEUT # 9.4 10*3/uL (2.3-7.9); PLATELET COUNT AUTOMATED 444 10*3/uL (130-400); RED BLOOD COUNT 4.53 10*6/uL (4.50-5.90); RED CELL DISTRI WIDTH 18.7 % (0-14.5); WHITE BLOOD COUNT 12.2 10*3/uL (4.8-10.8)
--- NOTE | 2018-06-05 07:30 | NUR ---
PT SITTING UP IN RECLINER. NO C/O AT THIS TIME. OXYGEN IN USE. CALL LIGHT IN REACH. SEE SHIFT ASSESSMENT.
[2018-06-05 08:00] VITALS: BP 144/72
--- NOTE | 2018-06-05 10:00 | NUR ---
RESTING IN BED. RESP-EASY AND REGULAR. TOLERATED ROUTINE MEDS. NO C/O AT THIS TIME. CALL LIGHT IN REACH.
--- NOTE | 2018-06-05 11:20 | NUR ---
PHYSICAL THERAPY Patient seen this am 1:1 for therapy visit and was sitting up in bedside chair upon therapist arrival. Patient was very pleasant this morning and presented with continuous O2-2.5L via NC, reporting no new c/o's at this time. Patient transfers performed seated B LE therex, all planes, x 20 reps each to increase LE strength followed by 5 consecutive sit to stand transfers. Patient demonstrated just a little fatigue following transfers, however HR / SpO2 remained WFL's throughout entire treatment. Patient reamained in bedside chair with call light, telephone and will continue per POC as tolerated. Total treatment time 16 minutes. Alexi Guillen, WRAPPING CHECKER
--- NOTE | 2018-06-05 11:31 | NUR ---
Patient does not qualify for snf placement at this time; discussed with physical and occupational therapists who stated they would now recommend patient go home with home health n/pt/ot vs. snf. infrastructure manager notified.
[2018-06-05 12:00] VITALS: BP 135/71
--- NOTE | 2018-06-05 12:34 | NUR ---
[id number], SEE EMAR. NO C/O AT THIS TIME. CALL LIGHT IN REACH.
--- NOTE | 2018-06-05 14:40 | NUR ---
OT NOTE Pt was seen this P.M. 1:1 for 15 minute OT session. Upon arrival pt was sitting upright in recliner, pt identified by name and . Pt presented to therapy with continous 2L-O2 via NC which he remained on throughout entire session. Pt completed sit to stand transfer from chair level with Callum and education for proper hand placement for increased I and improved technique. Upon inital rise pt required education to stand and "collect" himself due to being unsteady. Functional mobility then completed around the room with CGA while therapist managed O2 tank. Throughout mobility pt had LOB due to being impulsive requiring verbal prompts to slow down and also during turns that required verbal prompts to improve technique. Pt returned to recliner where he was left sitting upright under CLAIMS ACCOUNT MANAGER Peterson Melo and daughter supervision. Continue with POC as able. PEGGY Zarco/Marilyn
--- NOTE | 2018-06-05 14:44 | NUR ---
PHYSICAL THERAPY Patient presented to therapy in sitting position with daughter visiting in room. Patient is on 2 liters of spO2 via nasal canula. Patient agrees to therapy session. Patient was identified by name and . Patient performed STS transfer with SBA. Patient ambulated with no assistive device and Close Supervision for 300' x 1 with 2 liters of spO2. Patient then sat in bedside chair and performed bilateral LE THER EX x 15 reps each in all planes of movement for strengthening the LEs in order to improve patient's functional mobility. Patient was left in sitting position in bedside chair with call light within reach and patient's daughter visiting in the room. Patient ambulates to and from restroom throughout the day by himself. Patient was 1:1 with this MARINE FUEL DOCK ATTENDANT for 22 minutes total. Patient is recommended for HH PT upon discharge. DENYS SARMIENTO MARINE FUEL DOCK ATTENDANT
[2018-06-05 16:00] VITALS: BP 142/78
--- NOTE | 2018-06-05 16:00 | NUR ---
PT RESTING IN CHAIR. NO DISTRESS NOTED WILL MONITOR
--- NOTE | 2018-06-05 16:00 | NUR ---
RESTING IN BED VISITORS AT HIS SIDE. NO C/O AT THIS TIME. CALL LIGHT IN REACH.
--- NOTE | 2018-06-05 19:49 | NUR ---
ASSUMED CARE OF PT AT THIS TIME. PT AWAKE IN BED, RESPIRATIONS EASY. NO S/S OF DISTRESS NOTED. BSG CHECKED-285. 55 UNITS LANTUS GIVEN PER ORDER. NO COMPLAINTS VOICED. WILL MONITOR. CALL LIGHT LEFT IN REACH.
[2018-06-05 20:00] VITALS: BP 138/69
--- NOTE | 2018-06-05 22:04 | NUR ---
PT REFUSING SLIDING SCALE INSULIN. STATES HE ONLY TAKES 55 UNITS OF LANTUS AT HOME BID AND IS AFRAID HE WILL DROP THROUGHOUT THE NIGHT. REGULAR INSULIN HELD. BSG CURRENTLY 261. PATIENT ASSISTED OUT OF CHAIR INTO BED. WILL MONITOR. CALL LIGHT IN REACH.
[2018-06-06] VITALS: BP 106/47
--- NOTE | 2018-06-06 08:55 | NUR ---
PT SITTING UP IN CHAIR. TOLERATED ROUTINE MED WITH NO PROBLEM NO C/O AT THIS TIE. CALL LIGHT IN REACH. SEE SHIFT ASSESSMENT.
--- NOTE | 2018-06-06 09:45 | NUR ---
PHYSICAL THERAPY Patient seen this am 1:1 for therapy visit and was sitting up in bedside chair upon therapist arrival. Patient was very pleasant voicing no new c/o's and presented with continuous O2-2L via NC. Patient transfers all with SBA and ambulates without AD, 150'x 1, 100' x 1, SBA, demonstrating steady mode with no LOB. Patient still shows signs of mild fatigue, but able to manage with frequent stops while pacing himself. Patient returned to bedside chair and remained with call light, tray table and telephone. Will continue per POC as tolerated, total treatment time 17 minutes. Alexi Guillen, LOAN CONSULTANT
[2018-06-06] MEDS ORDERED: ELIQUIS5 M1 PO (10:24)
[2018-06-06] MEDS ORDERED: ATORVASTATIN CA40 M1 PO (10:24)
[2018-06-06] MEDS ORDERED: VITAMIN D32000 UNI1 PO (10:24)
[2018-06-06] MEDS ORDERED: PREDNISONE10 MG PO (10:24)
--- NOTE | 2018-06-06 11:00 | NUR ---
Discharge instructions reviewed with patient/family. Patient receptive and verbalizes understanding. Follow-up care arranged. Written instructions given to patient/family. HEPLOCK REMOVED 2X2 APPLIED. HOLTER MONITOR REMOVED. OMAR GRIFFIN
--- NOTE | 2018-06-06 11:10 | NUR ---
REFERRAL FAXED TO [facility].
--- NOTE | 2018-06-06 11:27 | NUR ---
PT AMBULATORY OFF THE FLOOR FOR DISCHARGE. RX GIVEN.
--- NOTE | 2018-06-06 12:04 | NUR ---
PHYSICAL THERAPY CO-SIGN I approve of the Phyical Therapy notes written above. MIKALA CLARKE PT
--- NOTE | 2018-06-06 15:45 | NUR ---
OCCUPATIONAL THERAPY CO-SIGN I approve of the Occupational Therapy notes written above. YOLI BLAS OTR/Marilyn
[2018-10-11] MEDS ORDERED: ELIQUIS5 M1 PO (15:00)
[2018-10-11] MEDS ORDERED: ASPIRIN CHEWABL81 MG PO (15:02)
[2018-11-20] MEDS ORDERED: NATURE'S BLEND F1 MG PO (11:08)
[2018-11-22] MEDS ORDERED: ELIQUIS5 M1 PO (09:08)
[2018-11-22] MEDS ORDERED: HYDROCODONE-AC1 EAC1 PO (09:08)
== END 2018-06-06 11:27 | disposition home or self-care (01) | DRG 683 ==
LOC: ED 01:43 → EDHOLD 04:34 → 5E 04:34
PROVIDERS: Emergency Medicine; Family Medicine; Student in an Organized Health Care Education/Training Program; ADMIT Internal Medicine
DX: N17.0 Acute kidney failure with tubular necrosis (principal); E44.1 Mild protein-calorie malnutrition; R65.10 Systemic inflammatory response syndrome (SIRS) of non-infectious origin without acute organ dysfunction; I50.32 Chronic diastolic (congestive) heart failure; J96.10 Chronic respiratory failure, unspecified whether with hypoxia or hypercapnia; R26.2 Difficulty in walking, not elsewhere classified; E66.09 Other obesity due to excess calories; K21.9 Gastro-esophageal reflux disease without esophagitis; E78.2 Mixed hyperlipidemia; M48.061 Spinal stenosis, lumbar region without neurogenic claudication; J44.9 Chronic obstructive pulmonary disease, unspecified; D64.9 Anemia, unspecified; I11.0 Hypertensive heart disease with heart failure; F17.200 Nicotine dependence, unspecified, uncomplicated; D47.3 Essential (hemorrhagic) thrombocythemia; I48.0 Paroxysmal atrial fibrillation; Z96.1 Presence of intraocular lens; R91.8 Other nonspecific abnormal finding of lung field; E11.40 Type 2 diabetes mellitus with diabetic neuropathy, unspecified; R79.89 Other specified abnormal findings of blood chemistry; K42.9 Umbilical hernia without obstruction or gangrene; E11.65 Type 2 diabetes mellitus with hyperglycemia; Z79.4 Long term (current) use of insulin; Z99.81 Dependence on supplemental oxygen; Z88.8 Allergy status to other drugs, medicaments and biological substances; Z87.01 Personal history of pneumonia (recurrent); Z90.49 Acquired absence of other specified parts of digestive tract; Z98.42 Cataract extraction status, left eye; Z98.41 Cataract extraction status, right eye; Z80.1 Family history of malignant neoplasm of trachea, bronchus and lung; Z82.49 Family history of ischemic heart disease and other diseases of the circulatory system; Z81.1 Family history of alcohol abuse and dependence; Z79.899 Other long term (current) drug therapy; Z79.84 Long term (current) use of oral hypoglycemic drugs; Z79.2 Long term (current) use of antibiotics; Z68.31 Body mass index [BMI] 31.0-31.9, adult

== ENCOUNTER 2018-09-20 15:23 | Inpatient (IN) | payer OTHER ==
[~2018-09-20] VITALS: Ht 167.6 cm; Wt 97.7 kg
--- NOTE | ~2018-09-20 | CON ---
[place], [place] REPORT OF CONSULTATION NAME: YANA MONTOYA [facility] #: [id number] UNIT #: [id number] ROOM: 506 DOCTOR: CARMENCITA PITTMAN MDAUBREY BIRTHDATE: [birth year] DOS: 09/21/2018 PULMONARY CONSULTATION, EVALUATION AND MANAGEMENT REASON FOR CONSULTATION: Assessment of respiratory status with shortness of breath. HISTORY OF PRESENT ILLNESS: This is a 73-year-old white male with a known history of pulmonary nodules related to rheumatoid arthritis, history of COPD and others. The patient was sent to the hospital. The patient was reporting symptoms of increased swelling of the hand as well as of the ankles and feet. He was complaining of increased pain in those joints as well. The symptoms are also associated with increased shortness of breath with exertion, coughing with intermittent yellowish sputum expectoration. [facility], noted with sinus tachycardia. The patient was supposedly to be using oxygen supplementation continuously for respiratory failure but noted nonadherence with treatment intermittently. He has been admitted to the hospital for further care. REVIEW OF SYSTEMS: CONSTITUTIONAL: Fatigue and tiredness noted. Denies symptoms of fever or chills. EYES: Denies any burning, redness or tenderness. EARS, NOSE AND THROAT SYMPTOMS: Denies sore throat, hoarseness, otalgia, postnasal drainage, or epistaxis. CARDIOVASCULAR SYSTEM: Denies anginal pain, edema or pain of the lower extremities. GASTROINTESTINAL SYMPTOMS: Denies dysphagia, nausea, vomiting, diarrhea, abdominal pain, hematemesis, melena, or hematochezia. SKIN: Denies abnormal lesions or rashes. MUSCULOSKELETAL SYMPTOMS: Joint pains noted of the hands, wrists, ankle areas. There are no major deformities reported in any of the joints. GENITOURINARY SYMPTOMS: Denies dysuria, suprapubic pain, or hematuria. CENTRAL NERVOUS SYSTEM: Denies dizziness, headache, diplopia, or syncopal episodes. Remaining systems were reviewed, they were noted all negative. PAST MEDICAL HISTORY: 1. Known history of COPD. 2. Chronic hypoxic respiratory failure. 3. Pulmonary nodules, most likely related to rheumatoid arthritis with biopsy done of one nodule which was noted nonmalignant. 4. The patient with hypercholesterolemia. 5. Type 2 diabetes mellitus. 6. Congestive heart failure, diastolic dysfunction. 7. Gastroesophageal reflux. 8. Neurotic depression. 9. Moderate obesity. SOCIAL HISTORY: The patient is , has 2 children, and lives at home. [place], [place] REPORT OF CONSULTATION NAME: YANA MONTOYA UNIT #: [id number] ROOM: [facility] DOCTOR: AUBREY GARDNER MD BIRTHDATE: [birth year] Denies alcohol use or drug use. Tobacco use is noted from the age of 89 years old, a pack of cigarettes per day, with intermittent alcohol use noted drinking a few beers a day. PAST SURGICAL HISTORY: 1. Muscle sparing mini-lateral thoracotomy on 12/08/2018. 2. Resection of pulmonary nodule noted, necrotizing nodule which is nonmalignant. Resection of the AP lymph node is also noted as nonmalignant. The surgery was done in [facility]. 3. Fiberoptic bronchoscopies. 4. Left arm fracture. 5. Bilateral cataract extraction with lens implantation. 6. Tonsillectomy. 7. Lumbar laminectomy. 8. Appendectomy. FAMILY HISTORY: The patient's father at the age of 6060 years old with complications of lung cancer. Mother at the age of 4646 years old with complications of alcoholism and coronary artery disease. MEDICATIONS: Administered at this time were noted as oral Lasix, potassium chloride, vitamin D, Zyrtec, aspirin, lisinopril, Chantix, Aricept, Lipitor, ferrous sulfate, gabapentin, metoprolol tartrate, Eliquis 5 mg p.o. b.i.d., Solu-Medrol 40 mg b.i.d., IV Rocephin and Zithromax. The patient had been previously given broad-spectrum intravenous antibiotics yesterday, which had been discontinued after the first dose administration. DRUG ALLERGIES: Noted as no known drug allergies. PHYSICAL EXAMINATION: GENERAL: This is a 73-year-old male, currently noted to be awake and alert, without any distress. Height of 5 feet 6 inches, weight of 215 pounds, BUN 34.7. VITAL SIGNS: Normal temperature, respirations 18-20, heart rate of 110-99, blood pressure 122/67-154/84. Pulse oxygen saturation recorded at rest on room air as 92% saturation. HEENT: Examination shows head is atraumatic. Eyes nonicterus. NECK: Supple. CARDIOVASCULAR: S1 and S2 audible. LUNGS: Noted without any wheezing or crackles at the present time. Breaths are noted mildly diminished bilaterally. ABDOMEN: Soft, nontender. Bowel sounds present. EXTREMITIES: Noted without any edema, clubbing, or cyanosis. Swelling was noted on the dorsum of the hand, metacarpophalangeal joints and some in the area of the wrist. VISIBLE SKIN: No lesions or rashes. CENTRAL NERVOUS SYSTEM: Intact. LABORATORY DATA: Lactic acid noted as 0.7 yesterday on admission, on 09/20/2018. WBC count of 15.3, hemoglobin 11.4, hematocrit 36.2, platelet count [place], [place] REPORT OF CONSULTATION NAME: YANA MONTOYA UNIT #: [id number] ROOM: [facility] DOCTOR: CARMENCITA PITTMAN MD,[facility] BIRTHDATE: [birth year] 533,000. PT and PTT was recorded as normal on admission as well. CMP that was done yesterday on admission - glucose 56, BUN normal, creatinine was normal. BMP that was done this morning - glucose 355, BUN normal, creatinine was normal. CBC that was done on 09/21/2018 - WBC count 13.2, hemoglobin 11, hematocrit 35.6, platelet count 497,000. DIAGNOSTIC DATA: Chest x-ray does show evidence of nodules, which were previously known with possible addition of a new nodule suspected in the right mid lung 2 cm in size. IMPRESSION: 1. The patient who has been currently admitted to the hospital noted with sinus tachycardia related to current acute exacerbation of chronic obstructive pulmonary disease very likely. 2. The patient with a history of chronic hypoxic respiratory failure, nonadherence with treatment as well. 3. History of rheumatoid arthritis, pulmonary nodules, without evidence of malignancy previously known. 4. History of nicotine abuse intermittently as well. 5. Acute tracheobronchitis. PLAN OF TREATMENT: I agree with the current use of antibiotics. The patient does not require any very broad-spectrum intravenous antibiotic. Continue steroids. The patient does not have an IV access at the present time. He may require either a midline or PICC line for IV access to continue with IV therapy. CT scan of the chest could be done to re-assess. The patient has been followed at [facility]. Unfortunately, the patient had been recommended to be assessed by the dry wall applicator for management of current pulmonary nodules but it has not been done so far. In the meantime, continue the patient's current medical management, plan of treatment at this time, other treatment and therapies and care. Usual care therapy plan of management as well. AUBREY TSE MD CM:CONSTR:REPORT OF CONSULTATION 1333 10/01/18 1154 interface
--- NOTE | ~2018-09-20 | EKG ---
[place], [place] ELECTROCARDIOGRAM REPORT NAME: YANA MONTOYA UNIT #: [id number] ROOM: 506 DOCTOR: JOE DRAFT REPORT BIRTHDATE: [birth year] [facility] Test Date: 2018-09-20 Test Time: 15:57:57 Pat Name: YANA MONTOYA Department: Room: 506 Gender: M Event Sales Assistant: Indu Ramos : 1945 Requested By: MANUEL DANGELO Order Number: [id number] Reading MD: Ruel Diggs MD Measurements Intervals [place] Rate: 108 P: 72 WA: 183 QRS: 13 QRSD: 97 T: 48 QT: 347 QTc: 465 Interpretive Statements Sinus tachycardia Compared to ECG 06/02/2018 07:04:59 Sinus rhythm no longer present Electronically Signed On 09-22-2018 10:55:00 PDT by Ruel Diggs MD CM:EKGRPT:ELECTROCARDIOGRAM REPORT [id number] MANUEL DIAZ DRAFT REPORT MANUEL ELY
--- NOTE | ~2018-09-20 | PR ---
[place], [place] PROGRESS NOTE NAME: YANA MONTOYA UNIT #: [id number] ROOM: 506 DOCTOR: CARMENCITA PITTMAN MD,AUBREY BIRTHDATE: [birth year] DOS: 09/24/2018 PULMONARY PROGRESS NOTE SUBJECTIVE: The patient is noted comfortable at this time, sitting on the bed this morning. There were no symptoms of coughing or sputum expectoration. Coughing has improved significantly in the last 24 hours. OBJECTIVE: VITAL SIGNS: Normal temperature, respiratory rate 20, heart rate of 103, blood pressure 129/65. Pulse oxygen saturation on room air was 94% saturation. HEENT: Shows head was atraumatic, eyes nonicterus. NECK: Supple. CARDIOVASCULAR: S1 and S2 audible. LUNGS: The patient was noted without any crackles, rhonchi, or wheezing. ABDOMEN: Soft, nontender. Bowel sounds present. EXTREMITIES: Without any acute edema. IMPRESSION: 1. Resolving acute exacerbation of chronic obstructive pulmonary disease on current medical management. 2. History of pulmonary nodule related to rheumatoid arthritis. PLAN OF MANAGEMENT: Discharge planning will be started. Discharging the patient on oral medications could be considered from pulmonary standpoint. Outpatient followup to be established as well. AUBREY TSE MD CM:PNTRANS 0901 1141 AUBREY PITTMAN MD 09/24/18 1141 interface
--- NOTE | ~2018-09-20 | PR ---
[place], [place] PROGRESS NOTE [id number] UN[facility] #: [id number] ROOM: 506 DOCTOR: CARMENCITA PITTMAN MD,AUBREY BIRTHDATE: [birth year] DOS: 09/23/2018 PULMONARY PROGRESS NOTE SUBJECTIVE: The patient is noted comfortable at this time, sitting on the chair this morning. Coughing has been subsiding. There were no symptoms of fever or chills or chest pain. Denies symptoms of abdominal pain. OBJECTIVE: VITAL SIGNS: Normal temperature, respiratory rate 17, heart rate of 93, blood pressure 112/60. The pulse oxygen saturation on room air 98% saturation. HEENT: Examination shows head was atraumatic. EYES: No icterus. NECK: Supple. CARDIOVASCULAR: S1, S2 is audible. LUNGS: The patient was noted without any wheezing or crackles at the present time. ABDOMEN: Soft, nontender. Bowel sounds present. EXTREMITIES: No acute change. IMPRESSION: 1. Stable respiratory status noted at the present time with gradual resolution and improvement of respiratory status. 2. Pulmonary nodule secondary to rheumatoid arthritis. 3. Resolving acute exacerbation of chronic obstructive pulmonary disease. PLAN OF TREATMENT: No changes in the plan of care at this time will be necessary. Continuation of current plan of management at this time without any changes. Usual care, other supportive plan of management and therapies. AUBREY TSE MD CM:PNTRANS 1328 AUBREY PITTMAN MD 09/24/18 0009 interface
--- NOTE | ~2018-09-20 | PR ---
[place], [place] PROGRESS NOTE NAME: YANA MONTOYA UNIT #: [id number] ROOM: 506 DOCTOR: CARMENCITA PITTMAN MD,AUBREY BIRTHDATE: [birth year] DOS: 09/22/2018 PULMONARY PROGRESS NOTE SUBJECTIVE: The patient was noted comfortable at this time, sitting in the chair this morning. He has been still complaining of coughing with small amount of sputum expectoration. Shortness of breath was noted with exertion, not have any symptoms of chest pain, fever or chills. OBJECTIVE: VITAL SIGNS: Normal temperature, respiratory rate 20, heart rate 115, blood pressure 128/70. Pulse oxygen saturation recorded on room air 90% saturation. HEENT: Head was atraumatic. Eyes nonicterus. NECK: Supple. CARDIOVASCULAR SYSTEM: S1, S2 is audible. LUNGS: The patient was noted with [id number]-[id number] decreased breaths in the lungs bilaterally. No wheezing or crackles. ABDOMEN: Soft, nontender. Bowel sounds present. EXTREMITIES: No acute change. LABORATORY DATA: CBC: WBC count 17,000, hemoglobin of 11.3., platelet count 562,000. IMPRESSION: 1. Acute tracheobronchitis noted with pulmonary nodule related to the rheumatoid arthritis. 2. Swelling of the hand and other joints related to rheumatoid arthritis. 3. Acute exacerbation of chronic obstructive pulmonary disease as well. PLAN OF TREATMENT: Continue bronchodilators, oxygen supplementation, corticosteroids and antibiotics. Sputum for Gram stain and culture for the patient was ordered, which was pending to be done. AUBREY TSE MD CM:PNTRANS 1344 [id number] AUBREY PITTMAN MD 09/22/18 2248 interface
[~2018-09-20 15:23] MED LIST changes: +ATORVASTATIN CA40 M1 PO; +ELIQUIS5 M1 PO; +VITAMIN D32000 UNI1 PO
[2018-09-20 15:30] VITALS: BP 147/75
[2018-09-20 16:00] VITALS: BP 138/74; BP 144/76
[2018-09-20 16:29] LABS: BASO # 0.1 10*3/uL (0.0-0.1); BASO % 0.7 % (0.0-1.0); EOS # 0.5 10*3/uL (0.0-0.4); EOS % 3.3 % (1.0-4.0); HEMATOCRIT 36.2 % (42.0-52.0); HEMOGLOBIN 11.4 g/dl (14.0-18.0); LYMPH # 2.3 10*3/uL (1.3-4.4); LYMPH % 14.9 % (27.0-41.0); MEAN CORPUSCULAR HGB 27.1 pg (27.0-31.0); MEAN CORPUSCULAR HGB CONC 31.5 g/dl (33.0-37.0); MEAN PLATELET VOLUME 9.2 fl (9.6-12.3); MONO # 1.1 10*3/uL (0.1-1.0); MONO % 7.5 % (3.0-9.0); NEUT # 11.2 10*3/uL (2.3-7.9); PLATELET COUNT AUTOMATED 537 10*3/uL (130-400); RED BLOOD COUNT 4.21 10*6/uL (4.50-5.90); RED CELL DISTRI WIDTH 16.6 % (0-14.5); WHITE BLOOD COUNT 15.3 10*3/uL (4.8-10.8)
[2018-09-20 16:30] VITALS: BP 138/74
[2018-09-20 16:40] LABS: ACT PARTIAL THROMBO TIME 29.6 SECONDS (20.8-31.5)
[2018-09-20 16:45] LABS: ALKALINE PHOSPHATASE 129 U/L (45-117); BUN 12 mg/dl (7-24); CHLORIDE 102 mmol/L (98-107); CREATININE 0.89 mg/dL (0.70-1.30); LIPASE 73 U/L (73-393); SGOT/AST 10 IU/L (3-35); SGPT/ALT 11 U/L (12-78); SODIUM 137 mmol/L (136-145); TOTAL PROTEIN 7.9 gm/dL (6.4-8.2)
[2018-09-20 16:48] LABS: TROPONIN I < 0.015 ng/ml (<0.045)
[2018-09-20 17:00] VITALS: BP 140/77
[2018-09-20 18:22] LABS: BILIRUBIN 1+ (NEGATIVE); BLOOD NEGATIVE (NEGATIVE); CLARITY CLEAR (CLEAR); COLOR YELLOW (YELLOW); GLUCOSE NEGATIVE (NEGATIVE); KETONE NEGATIVE (NEGATIVE); LEUKO ESTERASE NEGATIVE (NEGATIVE); NITRITE NEGATIVE (NEGATIVE); UROBILINOGEN 0.2 E.U./dl (0.2-1.0)
[2018-09-20 18:35] LABS: BACTERIA TRACE; EPITHELIAL CELLS 0-2; WBC 0-2 wbc/hpf (0-5)
[2018-09-20 18:45] VITALS: BP 122/67
[2018-09-20 20:10] VITALS: BP 155/80
--- NOTE | 2018-09-20 20:10 | NUR ---
A 73, admitted to 5E, under the services of SHARDA Cruz DO with a diagnosis of SEVERE SEPSIS, PULMONARY NODULES, COPD EXACERBATION. Chief complaint is TACHYCARDIA. Patient arrived via stretcher from ER. Monitor applied. Initial assessment completed. Vital signs taken and recorded. SHARDA CRUZ DO notified of admission to the unit. Orders received. See assessment for past medical history, medications and allergies. Patient and/or family oriented to unit. [facility] 5TH FLOOR visitation policy reviewed. Clothing/patient valuable form completed. EFFIE LEES
--- NOTE | 2018-09-20 20:30 | NUR ---
UNABLE TO UPDATE HOME MED REC.PATIENT DOES NOT KNOW MEDICATIONS HE TAKES. STATES SOMEONE CAN BRING A LIST OF HOME MEDICATIONS OR [facility]. DR. TRENT. NOTIFIED.
--- NOTE | 2018-09-20 22:09 | NUR ---
NOTIFIED DR. TSE OF NEW CONSULT. NO NEW ORDERS RECEIVED. WILL CONTINUE TO MONITOR.
--- NOTE | 2018-09-20 23:54 | NUR ---
NOTIFIED DR. POLK PATIENT RIPPED IV OUT AND AT THIS TIME WERE UNABLE TO PUT ANOTHER IV IN. PATIENTS HEART RATE IN THE 120S AT REST. NO NEW ORDERS RECEIVED. WILL CONTINUE TO MONITOR.
[2018-09-21] VITALS: BP 154/64
--- NOTE | 2018-09-21 00:25 | NUR ---
PATIENT RIPPED OUT IV. AFTER MULTIPLE UNSUCESSFUL ATTEMPTS PATIENT IS NOW REFUSING TO HAVE AN IV. NOTIFIED DR. TRENT. STATES HE WILL CHANGE HIS ANTIBIOTICS TO PO. WILL CONTINUE TO MONITOR.
[2018-09-21 06:06] LABS: HEMATOCRIT 35.6 % (42.0-52.0); MEAN CELL VOLUME 86.8 fl (80.0-94.0); MEAN CORPUSCULAR HGB 26.8 pg (27.0-31.0); MEAN CORPUSCULAR HGB CONC 30.9 g/dl (33.0-37.0); MEAN PLATELET VOLUME 9.9 fl (9.6-12.3); PLATELET COUNT AUTOMATED 497 10*3/uL (130-400); RED CELL DISTRI WIDTH 16.5 % (0-14.5); WHITE BLOOD COUNT 13.2 10*3/uL (4.8-10.8)
[2018-09-21 06:25] LABS: BUN 15 mg/dl (7-24); CHLORIDE 101 mmol/L (98-107); CREATININE 1.15 mg/dL (0.70-1.30); PHOSPHOROUS 2.8 mg/dL (2.5-4.9); POTASSIUM 4.1 mmol/L (3.5-5.1); SODIUM 136 mmol/L (136-145)
[2018-09-21 07:01] LABS: PLATELET SUFFICIENCY HIGH (NORMAL); TOTAL CELLS COUNTED 100 #CELLS
[2018-09-21 08:00] VITALS: BP 128/58
--- NOTE | 2018-09-21 09:00 | NUR ---
NOTIFIED THAT PATIENT STILL HAS NO IV ACCESS AFTER MULTIPLE FAILED ATTEMPTS. ALSO NOTIFIED THAT HR IS 120'S.
[2018-09-21] MEDS ORDERED: PROAIR HFA8.5 GM INH (10:06)
[2018-09-21] MEDS ORDERED: TEMOVATE30 GM T (10:10)
[2018-09-21] MEDS ORDERED: FEROSUL325 MG PO (10:11)
[2018-09-21] MEDS ORDERED: LASIX20 MG PO (10:12)
[2018-09-21] MEDS ORDERED: NEURONTIN100 MG PO (10:12)
[2018-09-21] MEDS ORDERED: MUCUS RELIEF C400 MG PO (10:14)
[2018-09-21] MEDS ORDERED: KERODEX 71113 GM T (10:15)
[2018-09-21] MEDS ORDERED: CHANTIX1 M1 PO (10:17)
[2018-09-21] MEDS ORDERED: VITAMIN B-12250 MCG PO (10:19)
--- NOTE | 2018-09-21 11:30 | NUR ---
Powder Cutting Operator in to talk to patient. Patient states lives at HOME with ALONE. There are NO steps in the home. Physician: KAYLEE NAGY Pharmacy: [place] Home health services: NO Patient's level of ADLs: INDEPENDENT Patient has working utilities: YES DME: NONE Follow-up physician's appointment after d/c: WILL BE MADE BY HOSPITALIST NURSE ON DISCAHRGE Does patient want to access PORTAL?: NO Discharge plan PT STATES HE LIVES HOME ALONE AND WILL RETURN HOME ON DISCHARGE.. PT STATES HE USED TO HAVE HOME OXYGEN BUT HE WAS NOT USING IT SO HE SENT IT BACK. PT CAN BE DISCHARGED TO HOME WHEN MEDICALLY STABLE. WILL CONTINUE TO FOLLOW. SON WILL PICK HIM UP ON DISCHARGE. NAKUL VALENCIA
--- NOTE | 2018-09-21 11:44 | NUR ---
[facility] STATES THEY WERE AWARE OF ADMISSION.
--- NOTE | 2018-09-21 11:46 | NUR ---
Nursing screen received and Occupational Therapy referral received. Thank you. Ashley Morales Otr/L
[2018-09-21 12:00] VITALS: BP 146/72
--- NOTE | 2018-09-21 12:02 | NUR ---
Occupational Therapy evaluation offered but patient declined and screen completed. Patient c/o some edema in his left hand but reports that it is better than it was before. He also reports that he is independent in self care and ambulating to the bathroom. He refused to wear his oxygen that was on the bed stating that "it doesnt help me". Patient c/o of a deep cough. He lives alone in an apt and has a cane but does not use it. Patient denies the need for Occupational THerapy but says he "wants to walk better". PT informed of above. Discharge OT referral per patient's request. Thank you. Ashley Morales OTR/emi
[2018-09-21 16:00] VITALS: BP 156/82
--- NOTE | 2018-09-21 16:45 | NUR ---
PHYSICAL THERAPY Patient evaluated on 5, full evaluation to follow. Continue with PT as per plan of care with fall, 02 and acute debility precautions. Home with home health Rn and PT for discharge planning. PAtient is moderate complexity via chart review, tests and evaluation: 31774. Thank you for this referral. Sydney Loya,PT
--- NOTE | 2018-09-21 16:55 | NUR ---
PHYSICAL THERAPY Nursing screen received. PT orders also received. Thank you. Sydney Loya,PT
[2018-09-21 20:00] VITALS: BP 126/76
--- NOTE | 2018-09-21 20:36 | NUR ---
AWAKE/ALERT FOR SHIFT ASSESSMENT. PATIENT RESTING OOB IN CHAIR AT THIS TIME. NO VOICED COMPLAINTS. 2L NC IN USE. CALL LIGHT IN REACH
[2018-09-22] VITALS: BP 136/90
--- NOTE | 2018-09-22 02:13 | NUR ---
PATIENT SLEEPING. NO S/S OF DISTRESS NOTED. CALL LIGHT IN REACH
--- NOTE | 2018-09-22 05:08 | NUR ---
NOTIFIED DR DE GUZMAN OF PATIENT REFUSING MORNING BLOOD DRAW.
[2018-09-22 06:26] LABS: HEMATOCRIT 35.8 % (42.0-52.0); HEMOGLOBIN 11.3 g/dl (14.0-18.0); MEAN CELL VOLUME 86.3 fl (80.0-94.0); MEAN CORPUSCULAR HGB 27.2 pg (27.0-31.0); MEAN CORPUSCULAR HGB CONC 31.6 g/dl (33.0-37.0); MEAN PLATELET VOLUME 9.5 fl (9.6-12.3); PLATELET COUNT AUTOMATED 562 10*3/uL (130-400); RED BLOOD COUNT 4.15 10*6/uL (4.50-5.90); RED CELL DISTRI WIDTH 16.7 % (0-14.5)
[2018-09-22 06:52] LABS: ALBUMIN 3.2 gm/dl (3.1-4.5); ALKALINE PHOSPHATASE 126 U/L (45-117); BUN 17 mg/dl (7-24); CHLORIDE 101 mmol/L (98-107); CREATININE 1.02 mg/dL (0.70-1.30); SGOT/AST 14 IU/L (3-35); SGPT/ALT 11 U/L (12-78); SODIUM 135 mmol/L (136-145); TOTAL PROTEIN 8.2 gm/dL (6.4-8.2)
[2018-09-22 07:04] LABS: PLATELET SUFFICIENCY HIGH (NORMAL); TOTAL CELLS COUNTED 100 #CELLS
[2018-09-22 08:00] VITALS: BP 128/70
[2018-09-22 12:00] VITALS: BP 142/80
[2018-09-22 16:00] VITALS: BP 152/74
[2018-09-22 20:00] VITALS: BP 155/106
[2018-09-23] VITALS: BP 170/89
[2018-09-23 06:19] LABS: BASO % 0.1 % (0.0-1.0); EOS # 0.1 10*3/uL (0.0-0.4); EOS % 0.5 % (1.0-4.0); HEMATOCRIT 39.5 % (42.0-52.0); HEMOGLOBIN 12.2 g/dl (14.0-18.0); LYMPH # 1.1 10*3/uL (1.3-4.4); LYMPH % 7.4 % (27.0-41.0); MEAN CELL VOLUME 86.6 fl (80.0-94.0); MEAN CORPUSCULAR HGB 26.8 pg (27.0-31.0); MEAN CORPUSCULAR HGB CONC 30.9 g/dl (33.0-37.0); MEAN PLATELET VOLUME 9.8 fl (9.6-12.3); MONO # 0.4 10*3/uL (0.1-1.0); MONO % 2.5 % (3.0-9.0); NEUT # 13.3 10*3/uL (2.3-7.9); NEUT % 88.7 % (47.0-73.0); PLATELET COUNT AUTOMATED 573 10*3/uL (130-400); RED BLOOD COUNT 4.56 10*6/uL (4.50-5.90); RED CELL DISTRI WIDTH 16.6 % (0-14.5)
[2018-09-23 06:34] LABS: ALBUMIN 3.3 gm/dl (3.1-4.5); ALKALINE PHOSPHATASE 119 U/L (45-117); BUN 21 mg/dl (7-24); CHLORIDE 99 mmol/L (98-107); CREATININE 1.01 mg/dL (0.70-1.30); PHOSPHOROUS 3.5 mg/dL (2.5-4.9); POTASSIUM 4.5 mmol/L (3.5-5.1); SGOT/AST 14 IU/L (3-35); SGPT/ALT 13 U/L (12-78); SODIUM 135 mmol/L (136-145); TOTAL PROTEIN 8.6 gm/dL (6.4-8.2)
[2018-09-23 08:00] VITALS: BP 112/60
[2018-09-23 12:00] VITALS: BP 109/56
[2018-09-23 16:00] VITALS: BP 134/69
[2018-09-23 20:00] VITALS: BP 128/56
--- NOTE | 2018-09-23 20:40 | NUR ---
PATIENT COMPLAINING OF IV SITE BURNING LIKE FIRE AND LEAKING. PATIENT REFUSES TO HAVE ANOTHER IV STARTED AND DEMANDED IV BE TURNED OFF. IV TURNED OFF AND ACCUCATH REMOVED. SITE RED AND EDEMETOUS. DR. WHITING NOTIFIED AND ORDERED TO D/C IV MEDS AND START LEVAQUIN 500MG PO DAILY. WILL CONTINUE TO MONITOR.
--- NOTE | 2018-09-23 21:25 | NUR ---
BLOOD GLUCOSE 509. DR. WHITING NOTIFIED AND ORDERED TO GIVE 22U OF HUMALOG AND REPEAT GLUCOSE IN 1 HOUR AND CALL HER WITH RESULTS.
--- NOTE | 2018-09-23 22:25 | NUR ---
REPEAT BLOOD GLUCOSE 488. DR. WHITING NOTIFIED AND ORDERED TO GIVE ANOTHER 22U OF HUMALOG AND NOT TO REPEAT THE TEST.
[2018-09-24] VITALS: BP 129/65
[2018-09-24 06:11] LABS: HEMATOCRIT 37.1 % (42.0-52.0); HEMOGLOBIN 11.5 g/dl (14.0-18.0); MEAN CELL VOLUME 85.9 fl (80.0-94.0); MEAN CORPUSCULAR HGB 26.6 pg (27.0-31.0); MEAN PLATELET VOLUME 9.3 fl (9.6-12.3); PLATELET COUNT AUTOMATED 584 10*3/uL (130-400); RED BLOOD COUNT 4.32 10*6/uL (4.50-5.90); RED CELL DISTRI WIDTH 16.5 % (0-14.5); WHITE BLOOD COUNT 18.3 10*3/uL (4.8-10.8)
[2018-09-24 06:30] LABS: BUN 26 mg/dl (7-24); CHLORIDE 100 mmol/L (98-107); CREATININE 0.98 mg/dL (0.70-1.30); POTASSIUM 4.7 mmol/L (3.5-5.1); SODIUM 132 mmol/L (136-145)
[2018-09-24 07:33] LABS: PLATELET SUFFICIENCY HIGH (NORMAL); POLYCHROMASIA SLIGHT; TOTAL CELLS COUNTED 100 #CELLS
[2018-09-24 08:00] VITALS: BP 114/60
--- NOTE | 2018-09-24 08:00 | NUR ---
PT RESTING IN BED. NO DISTRESS NOTED. SEE SHIFT ASSESSMENT. WILL MONITOR
--- NOTE | 2018-09-24 09:45 | NUR ---
PHYSICAL THERAPY Patient seen this am 1;1 for therapy visit and was sitting up in bedside chair upon therapist arrival. Patient voices no new c/o's and records resting HR 105 bpm seated. Patient transfers sit to stand SBA and ambulates ad bg in hallway, 1 lap, approx 300 feet, demonstrating increased velocity and mild fatigue. Patient recorded increased HR during gait 128 bpm prior to returning to bedside chair. Following 45 second seated rest, patient HR 110 bpm as patient remained in bedside chair with call light, tray table and telephone. Will continue per POC, total treatment time 14 minutes. Alexi Guillen, WORLDWIDE CHIEF CREATIVE OFFICER
[2018-09-24] MEDS ORDERED: PREDNISONE10 MG PO (10:03)
[2018-09-24] MEDS ORDERED: FUROSEMIDE20 M1 PO (10:07)
[2018-09-24] MEDS ORDERED: KLOR-CON M2020 ME1 PO (10:07)
--- NOTE | 2018-09-24 11:44 | NUR ---
[facility]
--- NOTE | 2018-09-24 12:00 | NUR ---
Discharge instructions reviewed with patient/family. Patient receptive and verbalizes understanding. Follow-up care arranged. Written instructions given to patient/family. NEELA PARKS
--- NOTE | 2018-09-24 12:06 | NUR ---
IN TO SEE PT. PT IS BEING DISCHARGED. DENIES ANY HOME NEEDS.
--- NOTE | 2018-09-25 07:25 | NUR ---
PHYSICAL THERAPY CO-SIGN I approve of the Phyical Therapy notes written above. MIKALA CLARKE PT
[2018-10-11] MEDS ORDERED: ELIQUIS5 M1 PO (15:00)
[2018-10-11] MEDS ORDERED: ASPIRIN CHEWABL81 MG PO (15:02)
[2018-11-20] MEDS ORDERED: NATURE'S BLEND F1 MG PO (11:08)
[2018-11-22] MEDS ORDERED: ELIQUIS5 M1 PO (09:08)
[2018-11-22] MEDS ORDERED: HYDROCODONE-AC1 EAC1 PO (09:08)
== END 2018-09-24 12:00 | disposition home or self-care (01) | DRG 871 ==
LOC: ED 15:23 → EDHOLD 18:37 → 5E 18:37
PROVIDERS: Emergency Medicine; Internal Medicine; Physician Assistant; Student in an Organized Health Care Education/Training Program; ADMIT Internal Medicine
DX: A41.9 Sepsis, unspecified organism (principal); J18.9 Pneumonia, unspecified organism; J96.21 Acute and chronic respiratory failure with hypoxia; J44.1 Chronic obstructive pulmonary disease with (acute) exacerbation; I50.32 Chronic diastolic (congestive) heart failure; J44.0 Chronic obstructive pulmonary disease with (acute) lower respiratory infection; E44.0 Moderate protein-calorie malnutrition; Z96.1 Presence of intraocular lens; R65.20 Severe sepsis without septic shock; R91.8 Other nonspecific abnormal finding of lung field; K21.9 Gastro-esophageal reflux disease without esophagitis; E78.2 Mixed hyperlipidemia; E11.40 Type 2 diabetes mellitus with diabetic neuropathy, unspecified; E66.09 Other obesity due to excess calories; I11.0 Hypertensive heart disease with heart failure; D64.9 Anemia, unspecified; E83.41 Hypermagnesemia; D72.810 Lymphocytopenia; F03.90 Unspecified dementia, unspecified severity, without behavioral disturbance, psychotic disturbance, mood disturbance, and anxiety; M06.9 Rheumatoid arthritis, unspecified; J20.9 Acute bronchitis, unspecified; E78.00 Pure hypercholesterolemia, unspecified; F34.1 Dysthymic disorder; R79.82 Elevated C-reactive protein (CRP); D47.3 Essential (hemorrhagic) thrombocythemia; F17.210 Nicotine dependence, cigarettes, uncomplicated; I48.0 Paroxysmal atrial fibrillation; E11.65 Type 2 diabetes mellitus with hyperglycemia; E11.649 Type 2 diabetes mellitus with hypoglycemia without coma; Z79.4 Long term (current) use of insulin; Z71.6 Tobacco abuse counseling; Z99.81 Dependence on supplemental oxygen; Z88.8 Allergy status to other drugs, medicaments and biological substances; Z90.49 Acquired absence of other specified parts of digestive tract; Z98.42 Cataract extraction status, left eye; Z98.41 Cataract extraction status, right eye; Z82.49 Family history of ischemic heart disease and other diseases of the circulatory system; Z80.1 Family history of malignant neoplasm of trachea, bronchus and lung; Z81.1 Family history of alcohol abuse and dependence; Z91.14 Patient's other noncompliance with medication regimen; Z79.899 Other long term (current) drug therapy; Z79.82 Long term (current) use of aspirin; Z79.84 Long term (current) use of oral hypoglycemic drugs; Z68.34 Body mass index [BMI] 34.0-34.9, adult

== ENCOUNTER 2019-03-25 10:17 | Inpatient (IN) | payer OTHER ==
[~2019-03-25] VITALS: Ht 167.6 cm; Wt 81.3 kg
[~2019-03-25 10:17] MED LIST changes: +ASPIRIN CHEWABL81 MG PO; +FEROSUL325 MG PO; +FUROSEMIDE20 M1 PO; +HYDROCODONE-AC1 EAC1 PO; +KERODEX 71113 GM T; +KLOR-CON M2020 ME1 PO; +LASIX20 MG PO; +MUCUS RELIEF C400 MG PO; +NATURE'S BLEND F1 MG PO; +NEURONTIN100 MG PO; +PROAIR HFA8.5 GM INH; +TEMOVATE30 GM T; +VITAMIN B-12250 MCG PO
[2019-03-25 10:22] VITALS: BP 116/80
--- NOTE | 2019-03-25 11:01 | NUR ---
RECEIVED REPORT CHRISTINA MILLAN RN.
[2019-03-25 11:38] LABS: BASO # 0.1 10*3/uL (0.0-0.1); BASO % 1.1 % (0.0-1.0); EOS # 0.3 10*3/uL (0.0-0.4); EOS % 3.5 % (1.0-4.0); HEMATOCRIT 38.8 % (42.0-52.0); HEMOGLOBIN 12.1 g/dl (14.0-18.0); LYMPH # 2.2 10*3/uL (1.3-4.4); LYMPH % 22.2 % (27.0-41.0); MEAN CELL VOLUME 93.9 fl (80.0-94.0); MEAN CORPUSCULAR HGB 29.3 pg (27.0-31.0); MEAN CORPUSCULAR HGB CONC 31.2 g/dl (33.0-37.0); MEAN PLATELET VOLUME 8.8 fl (9.6-12.3); MONO # 0.7 10*3/uL (0.1-1.0); MONO % 6.8 % (3.0-9.0); NEUT # 6.5 10*3/uL (2.3-7.9); NEUT % 66.1 % (47.0-73.0); PLATELET COUNT AUTOMATED 336 10*3/uL (130-400); RED BLOOD COUNT 4.13 10*6/uL (4.50-5.90); RED CELL DISTRI WIDTH 15.9 % (0-14.5); WHITE BLOOD COUNT 9.8 10*3/uL (4.8-10.8)
--- NOTE | 2019-03-25 11:53 | NUR ---
PT REQUESTING LUNCH TRAY. NO OTHER COMPLAINTS. RESTING IN BED. CALL LIGHT WITHIN REACH.
[2019-03-25 11:56] LABS: BILIRUBIN NEGATIVE (NEGATIVE); BLOOD NEGATIVE (NEGATIVE); CLARITY CLEAR (CLEAR); COLOR YELLOW (YELLOW); GLUCOSE NEGATIVE (NEGATIVE); KETONE NEGATIVE (NEGATIVE); LEUKO ESTERASE NEGATIVE (NEGATIVE); NITRITE NEGATIVE (NEGATIVE); PH 6.5 (5.0-9.0); SPECIFIC GRAVITY 1.015 (1.005-1.030); UROBILINOGEN 0.2 E.U./dl (0.2-1.0)
[2019-03-25 11:57] LABS: ACT PARTIAL THROMBO TIME 31.9 SECONDS (20.0-32.1)
[2019-03-25 12:00] VITALS: BP 163/78
[2019-03-25 12:02] LABS: ALBUMIN 3.5 gm/dl (3.1-4.5); ALKALINE PHOSPHATASE 119 U/L (45-117); BUN 13 mg/dl (7-24); CHLORIDE 101 mmol/L (98-107); CREATININE 0.78 mg/dL (0.70-1.30); POTASSIUM 4.1 mmol/L (3.5-5.1); SGOT/AST 15 IU/L (3-35); SGPT/ALT 13 U/L (12-78); SODIUM 136 mmol/L (136-145); TOTAL PROTEIN 8.3 gm/dL (6.4-8.2)
[2019-03-25 12:06] LABS: TROPONIN I < 0.015 ng/ml (<0.045)
[2019-03-25 12:08] LABS: WBC 0-2 wbc/hpf (0-5)
--- NOTE | 2019-03-25 13:47 | NUR ---
PT SLEEPING AT THIS TIME. NO DISRESS NOTED. CALL LIGHT WITHIN REACH. WILL CONTINUE TO MONITOR.
[2019-03-25 14:28] VITALS: BP 156/75
[2019-03-25 14:32] VITALS: BP 163/78
--- NOTE | 2019-03-25 16:32 | NUR ---
A 73, admitted to , under the services of DENISE Hardin DO with a diagnosis of GENERALIZED WEAKENESS UNABLE TO AMBULATE. Chief complaint is WEAKNESS. Patient arrived via bed from ER. Monitor applied. Initial assessment completed. Vital signs taken and recorded. DENISE HARDIN DO notified of admission to the unit. Orders received. See assessment for past medical history, medications and allergies. Patient and/or family oriented to unit. [facility] Clothing/patient valuable form completed. ALESSIA DUEÑAS
--- NOTE | 2019-03-25 17:40 | NUR ---
CONSULT CALLED TO DR. TSE, WILL SEE PATIENT TOMORROW.
[2019-03-25] MEDS ORDERED: FISH OIL 1,0001 EAC4 PO (17:41)
[2019-03-25] MEDS ORDERED: FUROSEMIDE40 MG PO (17:45)
[2019-03-25] MEDS ORDERED: MAGNESIUM OXID420 M1 PO (17:46)
[2019-03-25] MEDS ORDERED: MELATONIN3 M3 PO (17:49)
[2019-03-25] MEDS ORDERED: LIDODERM1 EACH T (17:51)
--- NOTE | 2019-03-25 18:37 | NUR ---
DR. DUNN NOTIFIED OF UP TO DATE MEDICATIONS.
[2019-03-25 20:00] VITALS: BP 144/61
[2019-03-26] VITALS: BP 131/83
[2019-03-26 06:36] LABS: BASO # 0.1 10*3/uL (0.0-0.1); BASO % 0.9 % (0.0-1.0); EOS # 0.4 10*3/uL (0.0-0.4); EOS % 4.1 % (1.0-4.0); HEMATOCRIT 35.6 % (42.0-52.0); HEMOGLOBIN 11.3 g/dl (14.0-18.0); LYMPH # 2.2 10*3/uL (1.3-4.4); LYMPH % 23.1 % (27.0-41.0); MEAN CELL VOLUME 91.8 fl (80.0-94.0); MEAN CORPUSCULAR HGB 29.1 pg (27.0-31.0); MEAN CORPUSCULAR HGB CONC 31.7 g/dl (33.0-37.0); MEAN PLATELET VOLUME 9.4 fl (9.6-12.3); MONO # 0.7 10*3/uL (0.1-1.0); MONO % 7.6 % (3.0-9.0); NEUT # 6.2 10*3/uL (2.3-7.9); NEUT % 63.9 % (47.0-73.0); PLATELET COUNT AUTOMATED 331 10*3/uL (130-400); RED BLOOD COUNT 3.88 10*6/uL (4.50-5.90); RED CELL DISTRI WIDTH 15.6 % (0-14.5); WHITE BLOOD COUNT 9.7 10*3/uL (4.8-10.8)
[2019-03-26 06:47] LABS: ACT PARTIAL THROMBO TIME 36.5 SECONDS (20.0-32.1)
[2019-03-26 06:54] LABS: ALBUMIN 3.2 gm/dl (3.1-4.5); BUN 13 mg/dl (7-24); CHLORIDE 101 mmol/L (98-107); CHOLESTEROL 109 mg/dL (<200); FREE T4 0.85 ng/dl (0.76-1.46); PHOSPHOROUS 4.9 mg/dL (2.5-4.9); POTASSIUM 3.8 mmol/L (3.5-5.1); SGOT/AST 15 IU/L (3-35); SGPT/ALT 13 U/L (12-78); SODIUM 134 mmol/L (136-145); TRIGLYCERIDES 116 mg/dl (<150); VLDL CHOLESTEROL 23 mg/dL (6-40)
[2019-03-26 07:01] LABS: ALKALINE PHOSPHATASE 109 U/L (45-117); HDL CHOLESTEROL 28 mg/dl (40-60); LDL CHOLESTEROL 58 mg/dL (9-159); TOTAL PROTEIN 7.7 gm/dL (6.4-8.2)
[2019-03-26 07:46] LABS: VITAMIN D, 25-HYDROXY 45.9 ng/mL (30-100)
[2019-03-26 08:00] VITALS: BP 110/68
--- NOTE | 2019-03-26 09:00 | NUR ---
Dairy Farm Worker in to talk to patient. Patient states lives at home with alone. There are few steps in the home. Physician: karey wiggins [facility]acy: [facility] Home health services: none Patient's level of ADLs: MODERATE ASSIST Patient has working utilities: all working DME: walker and cane Follow-up physician's appointment after d/c: will be made by hospitalist nurse director upon discharge Does patient want to access PORTAL?: no Discharge plan discussed with patient, he states he lives at home alone, he is is having difficulty with ambulation and adls, discussed with him a short term shelter and he as agreeable, given him the choice of area facilities he chose [facility], tool planner will make referral, also discussed with him having [facility] coverage, patient is not service connected and is unable to go to a [facility] contracted shelter, patient stated he was aware of this, case management will follow for any other needs. DIANE AVALOS
--- NOTE | 2019-03-26 10:30 | NUR ---
Occupational Therapy evaluation completed on 4 with full eval to follow. Precautions include slow rate of performance, acute debility and decline in ADLs tomi lower body,moderate complexity level 70610 via chart review, testing, evaluation. Recommend OT per POC and SNF to enable return home alone at prior level of function. Thank you. Edmar Morales OTR/l
--- NOTE | 2019-03-26 11:05 | NUR ---
PHYSICAL THERAPY Physical therapy evaluation completed, 4E. Full details to follow. moderate complexity determined after chart review/evaluation, [id number]. PT to work on strength, gait, transfers, endurance, safety. SNF recommended at discharge. Thank you Kalyn Santana, PT, DPT
--- NOTE | 2019-03-26 11:53 | NUR ---
Received call from Bettina at the [facility] requesting clinical. Clinical faxed to [phone].
[2019-03-26 12:00] VITALS: BP 118/60
--- NOTE | 2019-03-26 14:08 | NUR ---
[facility] Discharge instructions reviewed with patient/family. Patient receptive and verbalizes understanding. Follow-up care arranged. Written instructions given to patient/family. KAYLEE DOMINGUEZ
--- NOTE | 2019-03-26 14:18 | NUR ---
Therapy evals faxed to [facility] to complete referral. hospital exemption completed. If accepted, patient requires precert for [employer] Medicare.
[2019-03-26 16:00] VITALS: BP 120/72
[2019-03-26 20:00] VITALS: BP 128/55
--- NOTE | 2019-03-26 20:34 | NUR ---
PT REQUESTING TYLENOL FOR KNEE PAIN RATED 5/10. MEDICATED WITH PRN TYLENOL. WILL CHECK EFFECTIVENESS. CALL LIGHT WITHIN REACH.
--- NOTE | 2019-03-26 21:30 | NUR ---
PT STATES TYLENOL WAS EFFECTIVE.
--- NOTE | 2019-03-26 23:20 | NUR ---
PT SLEEPING IN BED. RESPIRATIONS EASY, NONLABORED. NO SIGNS OF DISTRESS NOTED. CALL LIGHT IS WITHIN REACH.
[2019-03-27] VITALS: BP 101/56
--- NOTE | 2019-03-27 01:24 | NUR ---
24 HR chart check completed.
[2019-03-27 08:00] VITALS: BP 110/76
--- NOTE | 2019-03-27 09:06 | NUR ---
PHYSICAL THERAPY Patient seen this am 1:1 for therapy visit and was sitting up on EOB upon therapist arrival. Patient identified by name / and reports B knee chronic stiffness / pain. Patient transfers sit to stand MIN A and ambulates with use of wh walker, MIN A, 40'x 2, demonstrating antalgic / shuffling gait pattern. Patient also fatigues quickly and needed brief seated rest break between gait trials to complete all gait safely this session. Patient returned to EOB sit and remained with call light, tray table and telephone. Will continue per POC as tolerated, total treatment time 16 minutes. Alexi Guillen, SHEEP FARM MANAGER
--- NOTE | 2019-03-27 10:24 | NUR ---
OT NOTE Pt was seen this A.M. 1:1 for 19 minute OT session. Upon arrival pt was sitting upright on the EOB. Pt identified by name and and had complaints of 9/10 B knee pain. Sit to stand completed from bed level with CGA and use of w/w for UE support. Functional mobility was completed into the bathroom with CGA and use of w/w, pt required two verbal prompts throughout for walker safety due to attempting to walk away without the walker and for safety with turning. There pt transferred on/off standard commode with Callum due to low surface and B knee pain. Clothing management completed with CGA due to being unsteady while standing without UE support and toilet hygiene completed with supervision while seated. Pt then stood sink side while washing his hands with CGA. Pt had one LOB backwards that required Callum to correct. Functional mobility was then completed back to the EOB where he was left sitting upright with call light in hand, tray table in place, and phone in reach. Continue with rec D/C plan to SNF. PEGGY Styles/Marilyn
[2019-03-27 12:00] VITALS: BP 131/62
--- NOTE | 2019-03-27 13:20 | NUR ---
PHYSICAL THERAPY Patient seen this pm 1;1 for therapy visit and was supine in bed upon therapist arrival. Patient identified by name / and reports no new c/o's since last session. Patient transfers supine to sit EOB with MIN A and performed seated B LE therex, all planes, x 20 reps each to increase LE strength. Patient tolerated all ex without c/o and returned to supine in bed to rest. Patient remained with call light, tray table and telephone. Will continue per POC as tolerated, total treatment time 13 minutes. Alexi Guillen, PHARMACY INFORMATICS MANAGER
--- NOTE | 2019-03-27 14:17 | NUR ---
case management talked with patient regarding skilled and him ambulating 40 feet with contact guard, educated him that his insurance would not qualify him for a SNF but would pay for home health, patient would rather go home and have home health
[2019-03-27] MEDS ORDERED: MUCINEX1200 M1 PO (15:12)
[2019-03-27 16:00] VITALS: BP 140/66
--- NOTE | 2019-03-27 19:17 | NUR ---
DISCHARGED TO HOME VIA WC WITH BELONGINGS. ALL PERTINENT DISCHARGE PAPERS GIVEN TO PT ON PREVIOUS SHIFT.
--- NOTE | 2019-03-28 07:57 | NUR ---
PHYSICAL THERAPY CO-SIGN I approve of the Physical Therapy notes written above. Kalyn Santana, PT, DPT
== END 2019-03-27 19:17 | disposition home health service (06) | DRG 204 ==
LOC: ED 10:17 → 4E 15:08 → EDHOLD 15:08 → 4E 16:06
PROVIDERS: Emergency Medicine; Hospitalist; ADMIT Family Medicine
DX: R91.8 Other nonspecific abnormal finding of lung field (principal); I50.32 Chronic diastolic (congestive) heart failure; J96.11 Chronic respiratory failure with hypoxia; R53.1 Weakness; E78.00 Pure hypercholesterolemia, unspecified; M06.9 Rheumatoid arthritis, unspecified; I11.0 Hypertensive heart disease with heart failure; K21.9 Gastro-esophageal reflux disease without esophagitis; J44.9 Chronic obstructive pulmonary disease, unspecified; E78.2 Mixed hyperlipidemia; F17.210 Nicotine dependence, cigarettes, uncomplicated; M25.50 Pain in unspecified joint; Z96.1 Presence of intraocular lens; E11.65 Type 2 diabetes mellitus with hyperglycemia; J30.2 Other seasonal allergic rhinitis; K42.9 Umbilical hernia without obstruction or gangrene; F32.9 Major depressive disorder, single episode, unspecified; E66.09 Other obesity due to excess calories; R26.2 Difficulty in walking, not elsewhere classified; D64.9 Anemia, unspecified; E11.41 Type 2 diabetes mellitus with diabetic mononeuropathy; I48.0 Paroxysmal atrial fibrillation; Z99.81 Dependence on supplemental oxygen; Z90.49 Acquired absence of other specified parts of digestive tract; Z79.84 Long term (current) use of oral hypoglycemic drugs; Z98.41 Cataract extraction status, right eye; Z98.42 Cataract extraction status, left eye; Z80.1 Family history of malignant neoplasm of trachea, bronchus and lung; Z82.49 Family history of ischemic heart disease and other diseases of the circulatory system; Z71.6 Tobacco abuse counseling

== ENCOUNTER 2019-05-31 18:05 | Inpatient (IN) | payer OTHER ==
[~2019-05-31] VITALS: Ht 167.6 cm; Wt 74.8 kg
[~2019-05-31 18:05] MED LIST changes: +FISH OIL 1,0001 EAC4 PO; +FUROSEMIDE40 MG PO; +LIDODERM1 EACH T; +MAGNESIUM OXID420 M1 PO; +MELATONIN3 M3 PO; +MUCINEX1200 M1 PO
[2019-05-31 18:26] VITALS: BP 138/84
[2019-05-31 19:51] LABS: BASO # 0.1 10*3/uL (0.0-0.1); BASO % 0.4 % (0.0-1.0); EOS # 0.2 10*3/uL (0.0-0.4); EOS % 1.1 % (1.0-4.0); HEMATOCRIT 41.1 % (42.0-52.0); HEMOGLOBIN 13.5 g/dl (14.0-18.0); LYMPH # 1.4 10*3/uL (1.3-4.4); LYMPH % 8.5 % (27.0-41.0); MEAN CELL VOLUME 90.7 fl (80.0-94.0); MEAN CORPUSCULAR HGB 29.8 pg (27.0-31.0); MEAN CORPUSCULAR HGB CONC 32.8 g/dl (33.0-37.0); MEAN PLATELET VOLUME 9.4 fl (9.6-12.3); MONO # 1.1 10*3/uL (0.1-1.0); MONO % 6.9 % (3.0-9.0); NEUT # 13.8 10*3/uL (2.3-7.9); NEUT % 82.7 % (47.0-73.0); PLATELET COUNT AUTOMATED 545 10*3/uL (130-400); RED BLOOD COUNT 4.53 10*6/uL (4.50-5.90); RED CELL DISTRI WIDTH 15.3 % (0-14.5); WHITE BLOOD COUNT 16.6 10*3/uL (4.8-10.8)
[2019-05-31 20:06] LABS: ACT PARTIAL THROMBO TIME 37.3 SECONDS (20.0-32.1)
[2019-05-31 20:07] LABS: ALBUMIN 3.3 gm/dl (3.1-4.5); ALKALINE PHOSPHATASE 132 U/L (45-117); BUN 72 mg/dl (7-24); CHLORIDE 102 mmol/L (98-107); CREATININE 2.06 mg/dL (0.70-1.30); LIPASE 75 U/L (73-393); POTASSIUM 4.8 mmol/L (3.5-5.1); SGOT/AST 80 IU/L (3-35); SGPT/ALT 19 U/L (12-78); SODIUM 134 mmol/L (136-145); TOTAL PROTEIN 9.4 gm/dL (6.4-8.2)
[2019-05-31 20:18] LABS: CPK 2268 U/L (39-308); TROPONIN I < 0.015 ng/ml (<0.045)
[2019-05-31 20:20] LABS: CKMB 12.2 ng/ml (0.5-3.6)
[2019-05-31 20:48] LABS: BILIRUBIN 2+ (NEGATIVE); BLOOD NEGATIVE (NEGATIVE); CLARITY CLEAR (CLEAR); COLOR YELLOW (YELLOW); GLUCOSE NEGATIVE (NEGATIVE); KETONE TRACE (NEGATIVE); LEUKO ESTERASE NEGATIVE (NEGATIVE); NITRITE NEGATIVE (NEGATIVE); SPECIFIC GRAVITY >= 1.030 (1.005-1.030); UROBILINOGEN 0.2 E.U./dl (0.2-1.0)
[2019-05-31 21:35] VITALS: BP 138/94
[2019-05-31 21:55] VITALS: BP 149/86
--- NOTE | 2019-05-31 21:55 | NUR ---
A 73, admitted to 4E, under the services of SALONI Myers DO with a diagnosis of WANG, FALL AT HOME AND DEMENTIA.. Chief complaint is PER ER SON AND DAUGHTER COULD NOT GET AHOLD OF PT. WHEN WENT TO CHECK ON HIM FOUND HIM ON THE FLOOR. PATIENT SAYS HE HAD FALLEN 3-4 HOURS BEFORE THEY ARRIVED BUT SON HADN'T SPOKE WITH HIM SINCE MONDAY AFTER 3PM AND DAUGHTER TRIED EARLIER TODAY AND COULDN'T GET HIM ON THE PHONE.. Patient arrived via stretcher from ER. Monitor applied. Initial assessment completed. Vital signs taken and recorded. SALONI MYERS DO notified of admission to the 4E unit. Orders received. See assessment for past medical history, medications and allergies. Patient and/or family oriented to unit. [facility] visitation policy reviewed. Clothing/patient valuable form completed. LEFT UPPER BUTTOCKS LARGE RED UNBLANCHABLE AREA AND OUTER LEFT ANKLE ON THE BONE ITSELF RED WITH TOP LAYER OF SKIN OPEN NO BLEEDING NOTED. REJI HOLMAN J
--- NOTE | 2019-05-31 23:38 | NUR ---
CALLED ANSWERING SERVICE FOR DR. BACON AND CONSULT INFORMATION GIVEN.
[2019-06-01] VITALS: BP 140/66
[2019-06-01 06:52] LABS: ALBUMIN 2.7 gm/dl (3.1-4.5); CREATININE 1.46 mg/dL (0.70-1.30); PHOSPHOROUS 3.5 mg/dL (2.5-4.9); POTASSIUM 4.3 mmol/L (3.5-5.1)
--- NOTE | 2019-06-01 07:14 | NUR ---
NOTIFIED [facility] OF CONSULT.
--- NOTE | 2019-06-01 07:44 | NUR ---
CALLED PODIATRY CONSULT AND LEFT MESSAGE TO CALL FOR NEW CONSULT.
--- NOTE | 2019-06-01 07:57 | NUR ---
SPOKE WITH DR MICHAEL REGARDING PODIATRY CONSULT
[2019-06-01 08:00] VITALS: BP 114/54
[2019-06-01 08:32] LABS: BASO # 0.1 10*3/uL (0.0-0.1); BASO % 0.6 % (0.0-1.0); EOS # 0.7 10*3/uL (0.0-0.4); EOS % 5.8 % (1.0-4.0); HEMATOCRIT 36.3 % (42.0-52.0); HEMOGLOBIN 11.3 g/dl (14.0-18.0); LYMPH # 1.4 10*3/uL (1.3-4.4); LYMPH % 11.5 % (27.0-41.0); MEAN CELL VOLUME 92.6 fl (80.0-94.0); MEAN CORPUSCULAR HGB 28.8 pg (27.0-31.0); MEAN CORPUSCULAR HGB CONC 31.1 g/dl (33.0-37.0); MEAN PLATELET VOLUME 9.4 fl (9.6-12.3); MONO % 8.3 % (3.0-9.0); NEUT % 73.2 % (47.0-73.0); PLATELET COUNT AUTOMATED 468 10*3/uL (130-400); RED BLOOD COUNT 3.92 10*6/uL (4.50-5.90); RED CELL DISTRI WIDTH 15.4 % (0-14.5); WHITE BLOOD COUNT 12.3 10*3/uL (4.8-10.8)
--- NOTE | 2019-06-01 09:13 | NUR ---
SPOKE WITH DTHarsh GASTON REGARDING NEEDING A MED LIST FOR PT
--- NOTE | 2019-06-01 09:56 | NUR ---
Customer Support Representative in to talk to patient. Patient states lives at HOME with ALONE. There are NO steps in the home. Physician: L[facility] [place]: [place] Home health services: NONE Patient's level of ADLs: MODERATE ASSIST Patient has working utilities: YES DME: NONE PER PT Follow-up physician's appointment after d/c: WILL BE MADE BY HOSPTIALIST NURSE DIRECTOR ON DISCHARGE Does patient want to access PORTAL?: NO Discharge plan PT LIVES AT HOME ALONE. TALKED TO PT ABOUT GOING TO REHAB PRIOR TO GOING HOME DUE TO FALLS. HE IS AGREEABLE AND CHOSE [facility]. NO OTHER NEEDS AT THIS TIME. WILL CONTINUE TO FOLLOW.. NAKUL VALENCIA
[2019-06-01 12:00] VITALS: BP 126/54
--- NOTE | 2019-06-01 14:29 | NUR ---
DEN GOODMAN ( DR RICKS BANKMAN ) SAW PT TODAY PER [facility]
--- NOTE | 2019-06-01 14:29 | NUR ---
DR BARRERA NOTIFIED THAT I CALLED PT DTR TO NOTIFY HER THAT WE NEED PT UP DATED MED LIST AND ALSO THAT PT HAS WOUNDS THAT NEED ORDERS
[2019-06-01 16:00] VITALS: BP 120/74
[2019-06-01] MEDS ORDERED: ASPIRIN81 M1 PO (17:32)
[2019-06-01] MEDS ORDERED: PROVENTIL HFA6.7 GM INH (17:42)
[2019-06-01] MEDS ORDERED: LANTUS SOL100 UNIT/1 SC ×2 (17:43→17:44)
[2019-06-01] MEDS ORDERED: SPIRIVA18 MCG PO (17:43)
[2019-06-01] MEDS ORDERED: NEURONTIN100 MG PO (17:46)
[2019-06-01] MEDS ORDERED: FISH OIL 1,0001 EAC4 PO (17:47)
--- NOTE | 2019-06-01 17:54 | NUR ---
MED LIST UP DATED
--- NOTE | 2019-06-01 18:30 | NUR ---
CALLED IN TO PATIENTS ROOM BY AIDE AND THE PATIENT WHERE HE HAD A REDDENED AREA ON HIS LEFT BUTTOCK IS NOW A BLISTER. MEASURED THE AREA AND PICTURE TAKEN. WILL COMPLETE A VIRG ON THIS. WILL UPDATE WOUND NURSE AND DOCTOR OF NEW WOUND.
--- NOTE | 2019-06-01 18:52 | NUR ---
CALLED DR BARRERA TO LET HIM KNOW OF THE PROGRESSION OF THE WOUND ON HIS LEFT BUTTOCK FROM A REDDENED AREA TO A BLISTER, HE STATES 'OK'. WILL CONTINUE TO MONITOR
[2019-06-01 20:00] VITALS: BP 123/71
[2019-06-02] VITALS: BP 128/75
--- NOTE | 2019-06-02 01:16 | NUR ---
24 HR chart check completed.
--- NOTE | 2019-06-02 04:30 | NUR ---
Patient sleeping. Respirations relaxed and easy. Siderails up . [place] on. ALESSIA CHAKRABORTY
[2019-06-02 06:12] LABS: BASO # 0.1 10*3/uL (0.0-0.1); BASO % 0.9 % (0.0-1.0); EOS # 1.1 10*3/uL (0.0-0.4); EOS % 9.1 % (1.0-4.0); HEMOGLOBIN 10.3 g/dl (14.0-18.0); LYMPH # 1.8 10*3/uL (1.3-4.4); LYMPH % 15.6 % (27.0-41.0); MEAN CELL VOLUME 91.7 fl (80.0-94.0); MEAN CORPUSCULAR HGB 29.5 pg (27.0-31.0); MEAN CORPUSCULAR HGB CONC 32.2 g/dl (33.0-37.0); MEAN PLATELET VOLUME 9.3 fl (9.6-12.3); MONO # 0.8 10*3/uL (0.1-1.0); MONO % 7.1 % (3.0-9.0); NEUT # 7.8 10*3/uL (2.3-7.9); NEUT % 66.4 % (47.0-73.0); PLATELET COUNT AUTOMATED 384 10*3/uL (130-400); RED BLOOD COUNT 3.49 10*6/uL (4.50-5.90); RED CELL DISTRI WIDTH 15.5 % (0-14.5); WHITE BLOOD COUNT 11.7 10*3/uL (4.8-10.8)
[2019-06-02 06:23] LABS: CREATININE 1.5 mg/dL (0.70-1.30); POTASSIUM 3.8 mmol/L (3.5-5.1)
[2019-06-02 08:00] VITALS: BP 110/68
--- NOTE | 2019-06-02 09:26 | NUR ---
PT RESTING IN BED. NO DISTRESS NOTED. WILL MONITOR
[2019-06-02 12:00] VITALS: BP 107/62
--- NOTE | 2019-06-02 12:03 | NUR ---
PHYSICAL THERAPY PT EVAL COMPLETED TODAY ON LEVEL 4: FULL EVAL TO FOLLOW; RECOMMEND PT WHILE HERE TO ADDRESS DECREASED STRENGTH AND FUNCTIONAL MOBILITY. PT EVAL IS MODERATE COMPLEXITY;[id number]. D/C RECOMMENDATIONS AT THIS TIME ARE FOR SNF ON D/C HE DOES LIVE ALONE AND HAD RECENT FALL AND ON EVAL TODAY REQUIRES MOD TO MAX ASSIST FOR ALL FUNCTIONAL MOBILITY AND TO TAKE A COUPLE STEPS TO CHAIR. AT COMPLETION OF EVAL WAS UP IN CHAIR WITH METALIZING SUPERVISOR AND NURSE AWARE AND CLIP ALARM TO BE PLACED BY METALIZING SUPERVISOR. THANK YOU FOR REFERRAL. SEBASTIEN CARROLL PT
[2019-06-02 16:00] VITALS: BP 110/60
[2019-06-02 20:00] VITALS: BP 112/70
[2019-06-03] VITALS: BP 123/72
--- NOTE | 2019-06-03 01:00 | NUR ---
PT PULLED OUT IV TO RIGHT HAND. NEW IV PLACED IN RT AC BY ANIBAL GOMEZ. FLUIDS RUNNING 100 ML/HR. PT TOLERATED PROCEDURE WELL. NO COMPLAINTS.
--- NOTE | 2019-06-03 04:27 | NUR ---
24 HOUR CHART CHECK COMPLETE.
[2019-06-03 06:32] LABS: BASO # 0.1 10*3/uL (0.0-0.1); BASO % 0.9 % (0.0-1.0); EOS % 8.2 % (1.0-4.0); HEMATOCRIT 28.1 % (42.0-52.0); LYMPH # 1.9 10*3/uL (1.3-4.4); LYMPH % 16.7 % (27.0-41.0); MEAN CELL VOLUME 92.1 fl (80.0-94.0); MEAN CORPUSCULAR HGB 29.5 pg (27.0-31.0); MEAN PLATELET VOLUME 9.3 fl (9.6-12.3); MONO # 0.8 10*3/uL (0.1-1.0); MONO % 7.2 % (3.0-9.0); NEUT # 7.6 10*3/uL (2.3-7.9); PLATELET COUNT AUTOMATED 368 10*3/uL (130-400); RED BLOOD COUNT 3.05 10*6/uL (4.50-5.90); RED CELL DISTRI WIDTH 15.4 % (0-14.5); WHITE BLOOD COUNT 11.6 10*3/uL (4.8-10.8)
[2019-06-03 06:40] LABS: CREATININE 1.86 mg/dL (0.70-1.30); POTASSIUM 3.9 mmol/L (3.5-5.1)
--- NOTE | 2019-06-03 08:09 | NUR ---
Patient off the floor at this time for testing spoke with Maria L BARNETT who is caring for patient and stated to call the wound care cell phone upon his return.
--- NOTE | 2019-06-03 08:44 | NUR ---
Nursing screen received and chart reviewed. Patient lives alone and PT recommended SNF upon d/c. Consider OT consult for d/c planning. Thank you. Ashley Morales OTR/L
--- NOTE | 2019-06-03 09:41 | NUR ---
YANA MONTOYA [id number] Please refer to the physician's history and physical for past medical history, comorbid conditions, and allergies. Diagnosis: WANG ACUTE KIDNEY INJURY FALL AT HOME DEMENTIA Ricardo Score: 18,AT RISK WOUND DESCRIPTIONS: Wound Number: 1 Location of the wound: LEFT BUTTOCKS Type of wound: STAGE 2 Thickness: Partial Size: 13CM X 0.7cm X 0.1cm Tunneling: NONE Undermining: NONE Sinus Tract: NONE Presence of Exudate: Serous Amount: Light Color: Red Odor: None Periwound Skin Appearance: Normal Wound edges: APPROXIMATED Pain (associated with wound): DENIED AT TIME OF ASSESSMENT How does patient state this happened? PATIENT UNSURE HOW THIS HAPPENED BUT STATES THAT HIS BROTHER FOUND HIM AFTER FOUR DAYS. Wound Number: 2 Location of the wound: LEFT SHOULDER Thickness: Partial Size: 2cm X 8cm X 0.1cm Tunneling: NONE Undermining: NONE Sinus Tract: NONE Presence of Exudate: Serous Amount: Light Color: Red Odor: None Periwound Skin Appearance: Normal Wound edges: APPROXIMATED Pain (associated with wound): DENIED AT TIME OF ASSESSMENT How does patient state this happened? PATIENT UNSURE HOW THIS HAPPENED BUT STATES THAT HIS BROTHER FOUND HIM AFTER FOUR DAYS. Wound Number: 3 Location of the wound: LEFT OUTER ANKLE Thickness: Partial Size: 2.5cm X 2cm X 0.1cm Tunneling: NONE Undermining: NONE Sinus Tract: NONE Presence of Exudate: Serous Amount: Light Color: Red Odor: None Periwound Skin Appearance: Normal Wound edges: APPROXIMATED Pain (associated with wound): DENIED AT TIME OF ASSESSMENT How does patient state this happened? PATIENT UNSURE HOW THIS HAPPENED BUT STATES THAT HIS BROTHER FOUND HIM AFTER FOUR DAYS. Surface the patient is resting on: Isoflex SKIN PREVENTION RECOMMENDATION: 1. Pressure redistribution support surface as appropriate 2. Elevate heels 3. Remove boots/TEDS every shift and reapply 4. Head of bed 30 degrees as tolerated 5. Assess nutrition and hydration 6. Manage moisture 7. Avoid the use of containment devices while in bed 8. Use absorptive products on surfaces limit layers of linens on bed 9. Turn and reposition every 1-2 hours in bed and every 1 hour in chair as tolerated 10. Weight shifts every 15 minutes while up in chair 11. Offloading with pillows or device to keep heels elevated off bed 12. Monitor skin at least every shift 13. Inspect under medical devices twice a day WOUND TREATMENT RECOMMENDATIONS: CONTINUE CURRENT ORDERS.
--- NOTE | 2019-06-03 11:00 | NUR ---
Occupational therapy orders received and OT evaluation completed in full on floor four. Patient precautions include fall risk, ww use, R UE IV line, weakness, and chair alarm. Per OT eval, OT recommends a SNF. If refused, home with HH SN, OT, and PT with supervision. Patient would benefit from continued OT treatment to maximize independence and safety with ADLs, mobility, and [place], [id number]. Thank you for the referral. Viv Hunt, OTR/L
--- NOTE | 2019-06-03 11:58 | NUR ---
Patient comes in from [place] assisted living. Family stating they are unsure at this time if he will be allowed to return to A.L. due to his increasing confusion. Patient was at [facility] short term in April of 2019. New referral faxed to [facility] for review as a back up plan if patient is unable to return to [place].
--- NOTE | 2019-06-03 13:55 | NUR ---
Patient initial referral was faxed to Ashley at [facility]. Waiting on OT Eval to complete referral. Requires precert.
[2019-06-03 14:16] LABS: ALBUMIN 2.4 gm/dl (3.1-4.5); CREATININE 1.84 mg/dL (0.70-1.30); POTASSIUM 3.9 mmol/L (3.5-5.1)
[2019-06-03 14:17] LABS: PHOSPHOROUS 2.2 mg/dL (2.5-4.9)
--- NOTE | 2019-06-03 14:43 | NUR ---
REPORT CALLED TO 5E, SPOKE WITH NORMA BARNETT
--- NOTE | 2019-06-03 14:45 | NUR ---
INITIAL ASSESSMENT COMPLETE. RESPS EASY ON RA. PT VOICES NO NEEDS AT THIS TIME. PT ALERT AND ORIENTED X2.BED ALARM INTACT. CALL LIGHT IN REACH.
[2019-06-03 16:00] VITALS: BP 101/67
--- NOTE | 2019-06-03 18:33 | NUR ---
Patient resting quietly with no c/o discomfort. Respirations easy and regular. Vital signs stable. No overt distress. BRIDGET AGUILAR
[2019-06-03 20:00] VITALS: BP 120/57
--- NOTE | 2019-06-03 20:00 | NUR ---
AWAKE & ALERT; CONFUSED & FORGETFUL AT TIMES. IV FLUIDS NOT INFUSING AT THIS TIME; STARTED IV FLUIDS. PT. VOICES NO C/O AT THIS TIME. LUNGS DIMINISHED BILATERALLY WITH AN INFREQUENT MOIST HARSH NONPRODUCTIVE COUGH. PT. TAKEN A PILLOW ALSO HE HAD NO PILLOW. PT. VOICES NO C/O; NO DISTRESS NOTED. WILL CONTINUE TO MONITOR.
--- NOTE | 2019-06-03 22:00 | NUR ---
BLOOD SUGAR 125; NO COVERAGE REQUIRED. REFUSED LANTUS. IV FLUIDS INFUSING; CALL LIGHT WITHIN REACH. CLOTHING SLIP DONE AT THIS TIME DUE TO CLOTHING SLIP FROM 4 EAST NOT BEING CORRECT.
[2019-06-04] VITALS: BP 106/57
--- NOTE | 2019-06-04 04:34 | NUR ---
Upon discharge recommend patient to follow up for wound care in outpatient setting continue current wound care orders at discharging facility.
[2019-06-04 06:17] LABS: BASO # 0.1 10*3/uL (0.0-0.1); BASO % 0.7 % (0.0-1.0); EOS # 1.1 10*3/uL (0.0-0.4); EOS % 9.9 % (1.0-4.0); HEMATOCRIT 29.4 % (42.0-52.0); HEMOGLOBIN 9.3 g/dl (14.0-18.0); LYMPH # 2.2 10*3/uL (1.3-4.4); LYMPH % 19.6 % (27.0-41.0); MEAN CELL VOLUME 91.6 fl (80.0-94.0); MEAN CORPUSCULAR HGB CONC 31.6 g/dl (33.0-37.0); MEAN PLATELET VOLUME 9.1 fl (9.6-12.3); MONO # 0.8 10*3/uL (0.1-1.0); MONO % 7.2 % (3.0-9.0); NEUT # 6.8 10*3/uL (2.3-7.9); NEUT % 61.4 % (47.0-73.0); PLATELET COUNT AUTOMATED 381 10*3/uL (130-400); RED BLOOD COUNT 3.21 10*6/uL (4.50-5.90); RED CELL DISTRI WIDTH 15.4 % (0-14.5); WHITE BLOOD COUNT 11.1 10*3/uL (4.8-10.8)
[2019-06-04 06:48] LABS: CREATININE 1.76 mg/dL (0.70-1.30); POTASSIUM 3.7 mmol/L (3.5-5.1)
--- NOTE | 2019-06-04 07:41 | NUR ---
OT eval and updates faxed to [facility] for precert. Waiting on auth
[2019-06-04 08:00] VITALS: BP 130/64
--- NOTE | 2019-06-04 08:30 | NUR ---
PT AWAKE, ALERT & CONFUSED. PLEASANT AND COOPERATIVE AT THIS TIME. LUNGS NOTED TO HAVE SCATTERED RHONCHI. ROOM AIR. IV FLUIDS INFUSING PER ORDER. PT USING URINAL. SITTING UP IN CHAIR. DENIES ANY IMMEDIATE NEEDS AT THIS TIME. CALL LIGHT WITHIN REACH.
--- NOTE | 2019-06-04 08:40 | NUR ---
OT NOTE Pt was seen this A.M. 1:1 for 17 minute OT session. Upon arrival pt was attempting to stand while body alarm was going off with no staff members in the room. Pt presented with IV in his RUE that remained in place throughout entire session. Pt completed sit to stand from chair level with maxA X 2 while using the urinal. Throughout pt had two LOB backwards that required Callum to correct. Pt tolerated aprox 2 minutes of static standing before sitting due to fatigue. Sit to stand then completed from chair level with maxA X 2 and use of w/w for UE support. Functional mobility was then completed into the bathroom with Callum and use of w/w. Throughout pt required verbal and tactile prompts for correcting his posture and safety with the walker due to staying unsafe distance from the walker. Pt transferred on to standard commode with Callum due to poor safety with alignement and being impulsive. He then transferred off standard commode with maxA X 2 and use of grab bar for UE support due to low surface. Pt then stood sink side while washing his hands with CGA. Functional mobility was then completed back to the recliner with Callum and use of w/w. There he was left with call light in hand, tray table in place, and body alarm activated for safety. Continue with rec D/C plan to SNF. PEGGY Styles/Marilyn
--- NOTE | 2019-06-04 09:07 | NUR ---
PHYSICAL THERAPY TREATMENT TIME: 08:25 AM - 08:40 AM 15 MINUTES TOTAL Patient presented to therapy in sitting in bedside chair with IV infusing. Patient gives informed consent for treatment. Patient was identified by name and on wristband. Patient performed sit to stand from BEDSIDE CHAIR with MAX A X 2. Patient required verbal cues for pushing off the armrests of chair with hands. Patient ambulated with Wh Walker and MIN A X 1 for 50' x 1 with other therapist managing IV line AND NO LOB DURING GAIT. Patient required verbal cues for upright posture and locking knees into extension to prevent knee buckle. Patient transferred back into bedside chair with MIN A X 2 and verbal cues for putting hands back on armrests of chair. Patient was left in bedside chair with call light within reach, phone within reach, chair alarm tested and attached to patient and LEs in low position. Patient was 1:1 with this PRESCHOOL HEAD TEACHER FOR 15 MINUTES TOTAL. DENYS SARMIENTO PRESCHOOL HEAD TEACHER
[2019-06-04 11:52] LABS: BILIRUBIN NEGATIVE (NEGATIVE); BLOOD 1+ (NEGATIVE); CLARITY SL CLOUDY (CLEAR); COLOR YELLOW (YELLOW); GLUCOSE NEGATIVE (NEGATIVE); KETONE NEGATIVE (NEGATIVE); LEUKO ESTERASE NEGATIVE (NEGATIVE); NITRITE NEGATIVE (NEGATIVE); SPECIFIC GRAVITY <= 1.005 (1.005-1.030); UROBILINOGEN 0.2 E.U./dl (0.2-1.0)
[2019-06-04 12:00] VITALS: BP 136/58
[2019-06-04 12:09] LABS: URINE CREATININE RANDOM 71.9 mg/dL
[2019-06-04 12:36] LABS: BACTERIA TRACE
--- NOTE | 2019-06-04 12:47 | NUR ---
PHILOSOPHY PROFESSOR received Statement of Expert Evaluation. PHILOSOPHY PROFESSOR contacted APS and made referral for family assistance with Guardianship since no POA is in place. -CATRINA Shah
--- NOTE | 2019-06-04 15:27 | NUR ---
MARKETING COMMUNITY LIAISON faxed updates to [facility]. -CATRINA Shah
[2019-06-04 16:00] VITALS: BP 146/66
--- NOTE | 2019-06-04 18:15 | NUR ---
PT SUSTAINED FALL IN BATHROOM AT THIS TIME. PT WAS SITTING UP AT SIDE OF BED EATING DINNER WITH BED ALARM ON. BED ALARM SOUNDED. PATIENT TRIPPED OVER IV POLE IN AN ATTEMPT TO MAKE IT TO BATHROOM AND FELL/LANDED ON HIS RIGHT HIP. PATIENT IN NO DISTRESS, NO OPEN INJURIES, DENIES PAIN, VSS. NOTIFIED . ORDERS OBTAINED. NOTIFIED DEVANTE SHIFT DIRECTOR. ATTEMPTED TO CALL SONDRA WITH NO ANSWER.
[2019-06-04 20:00] VITALS: BP 133/52
--- NOTE | 2019-06-04 20:50 | NUR ---
PATIENT IS SLEEPING, AROUSES EASILY FOR ASSESSMENT. ASSESSMENT IS COMPLETE WITH NO C/O OR S/S OF DISTRESS NOTED AT THIS TIME. BED IS LOW, LOCKED, ALARMED, AND CALL LIGHT IS WITHIN REACH. BEDSIDE GLUCOSE 130. WILL CONTINUE TO MONITOR, SEE SHIFT ASSESSMENT.
[2019-06-05] VITALS: BP 133/67
[2019-06-05 08:00] VITALS: BP 130/68
--- NOTE | 2019-06-05 08:48 | NUR ---
CATRINA spoke with Kashif. She will be in to see Case Management tomorrow 06/06/2019 to picker feeder the Statement of Expert Evaluation. -CATRINA Shah
--- NOTE | 2019-06-05 08:50 | NUR ---
PATIENT'S ABD HARD & DISTENDED AND C/O NO BOWEL MOVEMENT "IN SEVERAL DAYS". MEDICATED WITH MILK OF MAG AT THIS TIME PER ORDER. WILL MONITOR.
--- NOTE | 2019-06-05 09:00 | NUR ---
case management visits with patient, he has been referred to [facility] for short term [facility] and is waiting on insurance precert, case management/public health social worker following
--- NOTE | 2019-06-05 10:00 | NUR ---
OT NOTE Pt was seen this A.M. 1:1 for 16 minute OT session. Upon arrival pt was supine in bed. Pt identified by name and and had no complaints at this time. Pt presented to therapy with IV in his RUE that remained in place throughout the entire session. Pt transferred supine to sit EOB with modA x 2 followed by sit to stand from bed level with modA x 2. Upon inital rise pt presented with retrograde posture and being impulsive increasing risk of falls. Functional mobility was then completed into the bathroom with Callum and use of w/w for UE support. Throughout mobility pt required verbal and tactile prompts for correcting his posture and poor walker safety. Pt then transferred on/off standard commode with moda and use of grab bar for UE support. Clothing managemetn and toilet hygiene completed with maxA due to LOB backwards while standing without UE support that required modA to correct. Functional mobility completed to the recliner where he was left sitting upright with call light in hand, tray table in place, and body alarm activated for safety. Continue with rec D/C plan to SNF. NIRAV Styles
--- NOTE | 2019-06-05 11:38 | NUR ---
PHYSICAL THERAPY TREATMENT TIME: 09:45 AM - 09:59 AM 14 MINUTES PATIENT PRESENTED TO THERAPY IN SUPINE WITH HEAD OF BED ELEVATED AND IV INFUSING AND REPORT OF FEELING A LITTLE BETTER. PATIENT IS A LITTLE LETHARGIC THIS MORNING. PATIENT TRANSFERRED SUPINE TO SITTING AT EOB WITH MOD A X 2. PATIENT TRANSFERRED SIT TO STAND WITH MOD A X 2. PATIENT AMBULATED WITH WH WALKER AND CGA X 1 15' X 1 AND THEN AGAIN 20 ' X 1 WITH CGA X 1. PATIENT SIT TO STADN FROM LOW CHAIR WITH MOD A X 2. PATIENT LEFT IN BEDSIDE CHAIR WIT HCALL LIGHT WITHIN REACH, CHAIR ALARM TESTED AND ATTACHED TO PATIENT AND TRAY TABLE NEAR PATIENT. PATIENT WA 1:1 WITH THIS DIRECTOR OF RETAIL MARKETING FOR 14 MINUTES TOTAL. DENYS SARMIENTO DIRECTOR OF RETAIL MARKETING
[2019-06-05 12:00] VITALS: BP 126/56
--- NOTE | 2019-06-05 13:43 | NUR ---
PRECERT is pending. CATRINA completed HENs. -CATRINA Shah
--- NOTE | 2019-06-05 14:00 | NUR ---
MILK OF MAG EFFECTIVE FOR 2 LARGE LIQUID BM'S.
[2019-06-05 16:00] VITALS: BP 124/72
[2019-06-05 20:00] VITALS: BP 130/79
--- NOTE | 2019-06-05 20:42 | NUR ---
PATIENT IS RESTING IN BED WITH EASY AND REGULAR RESPERS ON ROOM AIR. ASSESSMENT IS COMPLETE WITH NO C/O OR S/S OF DISTRESS NOTED AT THIS TIME. BED IS LOW, LOCKED, ALARMED, AND CALL LIGHT IS WITHIN REACH. WILL CONTINUE TO MONITOR, SEE SHIFT ASSESSMENT.
[2019-06-06] VITALS: BP 143/66
--- NOTE | 2019-06-06 07:23 | NUR ---
PRECERT has been obtained. Patient can go today if medically stable. -CATRINA Shah
[2019-06-06 08:00] VITALS: BP 122/64
--- NOTE | 2019-06-06 09:07 | NUR ---
PT SITTING UP IN CHAIR BESIDE BED. AM MEDICATIONS TAKEN WITH EASE. PT DENIES SOB OR CHEST PAIN. NO S/S OF DISTRESS NOTED. ALL SAFETY MEASURES IN PLACE. CALL LIGHT IN REACH.
[2019-06-06] MEDS ORDERED: Lantus SC (10:54)
[2019-06-06] MEDS ORDERED: RIVASTIGMINE1 EACH T (10:54)
[2019-06-06] MEDS ORDERED: Humalog SQ (10:54)
[2019-06-06] MEDS ORDERED: GABAPENTIN100 M2 PO (10:54)
--- NOTE | 2019-06-06 11:17 | NUR ---
TROUT FARMER received notice of discharge. TROUT FARMER spoke with ANIBAL Bates. TROUT FARMER reached out to [facility] and scheduled a 2pm transport. TROUT FARMER nofitied Oriana [facility], and patients daughter Shyla, of Transport time. TROUT FARMER will fax discharge orders when available. -CATRINA Shah
[2019-06-06 12:00] VITALS: BP 119/58
--- NOTE | 2019-06-06 13:14 | NUR ---
ATTEMPTED TO CALL REPORT TO [facility] X 2 AT THIS TIME. UNABLE TO REACH. VOICEMAIL LEFT. WILL TRY AGAIN AT A LATER TIME.
--- NOTE | 2019-06-06 13:20 | NUR ---
PT REFUSES DISCHARGE PHOTOS OF WOUNDS.
--- NOTE | 2019-06-06 14:00 | NUR ---
Discharge instructions reviewed with patient/family. Patient receptive and verbalizes understanding. Follow-up care arranged. Written instructions given to patient/family. QUAN POWELL
--- NOTE | 2019-06-07 07:35 | NUR ---
PHYSICAL THERAPY CO-SIGN I approve of the Physical Therapy notes written above. Natalia Jones PT
--- NOTE | 2019-06-07 07:52 | NUR ---
OCCUPATIONAL THERAPY CO-SIGN I approve of the Occupational Therapy notes written above. AMANDA TYLER, OTR/L
== END 2019-06-06 14:00 | disposition other institution (70) | DRG 564 ==
LOC: ED 18:05 → EDHOLD 21:12 → 4E 21:12 → 5E 06-03 14:16
PROVIDERS: Hospitalist; Internal Medicine; Physician Assistant; Student in an Organized Health Care Education/Training Program; ADMIT Emergency Medicine
DX: T79.6XXA Traumatic ischemia of muscle, initial encounter (principal); N17.0 Acute kidney failure with tubular necrosis; R65.10 Systemic inflammatory response syndrome (SIRS) of non-infectious origin without acute organ dysfunction; I50.32 Chronic diastolic (congestive) heart failure; E87.1 Hypo-osmolality and hyponatremia; E87.2 Acidosis; W19.XXXA Unspecified fall, initial encounter; D72.829 Elevated white blood cell count, unspecified; D47.3 Essential (hemorrhagic) thrombocythemia; D72.810 Lymphocytopenia; E83.41 Hypermagnesemia; E86.0 Dehydration; E11.65 Type 2 diabetes mellitus with hyperglycemia; K21.9 Gastro-esophageal reflux disease without esophagitis; E78.2 Mixed hyperlipidemia; J43.9 Emphysema, unspecified; I11.0 Hypertensive heart disease with heart failure; F17.210 Nicotine dependence, cigarettes, uncomplicated; F03.90 Unspecified dementia, unspecified severity, without behavioral disturbance, psychotic disturbance, mood disturbance, and anxiety; E11.42 Type 2 diabetes mellitus with diabetic polyneuropathy; M25.50 Pain in unspecified joint; R91.8 Other nonspecific abnormal finding of lung field; I48.0 Paroxysmal atrial fibrillation; B35.1 Tinea unguium; Z96.1 Presence of intraocular lens; Z79.01 Long term (current) use of anticoagulants; Y92.009 Unspecified place in unspecified non-institutional (private) residence as the place of occurrence of the external cause; Y93.89 Activity, other specified; Y99.8 Other external cause status; Z71.6 Tobacco abuse counseling; Z98.42 Cataract extraction status, left eye; Z98.41 Cataract extraction status, right eye; Z81.1 Family history of alcohol abuse and dependence; Z80.1 Family history of malignant neoplasm of trachea, bronchus and lung; Z82.49 Family history of ischemic heart disease and other diseases of the circulatory system; Z79.4 Long term (current) use of insulin

== ENCOUNTER 2019-06-28 12:19 | Emergency (ER) | payer OTHER ==
[~2019-06-28] VITALS: Wt 81.6 kg
[~2019-06-28 12:19] MED LIST changes: +ASPIRIN81 M1 PO; +GABAPENTIN100 M2 PO; +Humalog SQ; +LANTUS SOL100 UNIT/1 SC; +Lantus SC; +RIVASTIGMINE1 EACH T; +SPIRIVA18 MCG PO
[2019-06-28 13:05] LABS: BASO # 0.1 10*3/uL (0.0-0.1); EOS # 0.3 10*3/uL (0.0-0.4); EOS % 2.9 % (1.0-4.0); HEMATOCRIT 36.5 % (42.0-52.0); HEMOGLOBIN 11.6 g/dl (14.0-18.0); MEAN CELL VOLUME 92.9 fl (80.0-94.0); MEAN CORPUSCULAR HGB 29.5 pg (27.0-31.0); MEAN CORPUSCULAR HGB CONC 31.8 g/dl (33.0-37.0); MEAN PLATELET VOLUME 9.5 fl (9.6-12.3); MONO # 1.1 10*3/uL (0.1-1.0); MONO % 9.5 % (3.0-9.0); NEUT % 69.2 % (47.0-73.0); PLATELET COUNT AUTOMATED 342 10*3/uL (130-400); RED BLOOD COUNT 3.93 10*6/uL (4.50-5.90); RED CELL DISTRI WIDTH 16.1 % (0-14.5); WHITE BLOOD COUNT 11.5 10*3/uL (4.8-10.8)
[2019-06-28 13:18] LABS: ACT PARTIAL THROMBO TIME 38.4 SECONDS (20.0-32.1); INTERNATIONAL NORM RATIO 1.1 (2.0-3.5)
[2019-06-28 13:22] LABS: ALBUMIN 3.4 gm/dl (3.1-4.5); ALKALINE PHOSPHATASE 130 U/L (45-117); BUN 27 mg/dl (7-24); CHLORIDE 104 mmol/L (98-107); CREATININE 1.25 mg/dL (0.70-1.30); POTASSIUM 4.8 mmol/L (3.5-5.1); SGOT/AST 17 IU/L (3-35); SGPT/ALT 17 U/L (12-78); SODIUM 134 mmol/L (136-145); TOTAL PROTEIN 8.9 gm/dL (6.4-8.2)
[2019-06-28 13:24] LABS: TROPONIN I < 0.015 ng/ml (<0.045)
[2019-06-28 13:31] LABS: BILIRUBIN NEGATIVE (NEGATIVE); BLOOD 3+ (NEGATIVE); CLARITY CLOUDY (CLEAR); COLOR YELLOW (YELLOW); GLUCOSE NEGATIVE (NEGATIVE); KETONE NEGATIVE (NEGATIVE); LEUKO ESTERASE 3+ (NEGATIVE); NITRITE NEGATIVE (NEGATIVE); SPECIFIC GRAVITY 1.025 (1.005-1.030); UROBILINOGEN 0.2 E.U./dl (0.2-1.0)
[2019-06-28 13:32] LABS: WBC TNTC wbc/hpf (0-5)
[2019-06-28 13:33] LABS: BACTERIA 3+; RBC 21-30 rbc/hpf (0-2)
[2019-06-28] MEDS ORDERED: BACTRIM 400-801 EACH PO (13:52)
[2019-07-10] MEDS ORDERED: MARINOL2.5 M1 PO (09:41)
== END 2019-06-28 15:27 ==
LOC: ED 12:19
PROVIDERS: Internal Medicine
DX: N39.0 Urinary tract infection, site not specified (principal); R41.82 Altered mental status, unspecified; E11.40 Type 2 diabetes mellitus with diabetic neuropathy, unspecified; J44.9 Chronic obstructive pulmonary disease, unspecified; F03.90 Unspecified dementia, unspecified severity, without behavioral disturbance, psychotic disturbance, mood disturbance, and anxiety; K21.9 Gastro-esophageal reflux disease without esophagitis; I11.0 Hypertensive heart disease with heart failure; I50.30 Unspecified diastolic (congestive) heart failure; E78.2 Mixed hyperlipidemia; I48.0 Paroxysmal atrial fibrillation; Z79.899 Other long term (current) drug therapy; Z79.82 Long term (current) use of aspirin; Z79.4 Long term (current) use of insulin; Z90.49 Acquired absence of other specified parts of digestive tract

== ENCOUNTER → 2019-07-12 | Day surgery (SDC) | payer OTHER ==
[~2019-07-12] VITALS: Ht 167.6 cm; Wt 72.2 kg
[~2019-07-12] MED LIST changes: +BACTRIM 400-801 EACH PO; +MARINOL2.5 M1 PO
[2019-07-12 10:57] VITALS: BP 125/77
[2019-07-12 11:50] VITALS: BP 91/58
[2019-07-12 12:05] VITALS: BP 114/65
[2019-07-12 12:20] VITALS: BP 121/72
== END | disposition home or self-care (01) ==
LOC: SDC 07-08 11:00
DX: D64.9 Anemia, unspecified (principal); K21.9 Gastro-esophageal reflux disease without esophagitis; E78.00 Pure hypercholesterolemia, unspecified; I11.0 Hypertensive heart disease with heart failure; I50.9 Heart failure, unspecified; J44.9 Chronic obstructive pulmonary disease, unspecified; E11.40 Type 2 diabetes mellitus with diabetic neuropathy, unspecified; K29.50 Unspecified chronic gastritis without bleeding; I48.91 Unspecified atrial fibrillation; Z98.890 Other specified postprocedural states; Z79.899 Other long term (current) drug therapy

== ENCOUNTER 2019-10-03 12:36 | Emergency (ER) | payer OTHER ==
[~2019-10-03] VITALS: Ht 167.6 cm; Wt 73.9 kg
[2019-10-03 13:11] LABS: BASO # 0.2 10*3/uL (0.0-0.1); BASO % 1.2 % (0.0-1.0); EOS # 0.7 10*3/uL (0.0-0.4); HEMATOCRIT 28.6 % (42.0-52.0); LYMPH # 2.9 10*3/uL (1.3-4.4); LYMPH % 23.4 % (27.0-41.0); MEAN CELL VOLUME 87.5 fl (80.0-94.0); MEAN CORPUSCULAR HGB 28.4 pg (27.0-31.0); MEAN CORPUSCULAR HGB CONC 32.5 g/dl (33.0-37.0); MEAN PLATELET VOLUME 8.8 fl (9.6-12.3); MONO % 8.3 % (3.0-9.0); NEUT # 7.4 10*3/uL (2.3-7.9); NEUT % 60.7 % (47.0-73.0); PLATELET COUNT AUTOMATED 346 10*3/uL (130-400); RED BLOOD COUNT 3.27 10*6/uL (4.50-5.90); RED CELL DISTRI WIDTH 16.4 % (0-14.5); WHITE BLOOD COUNT 12.2 10*3/uL (4.8-10.8)
[2019-10-03 13:22] LABS: ACT PARTIAL THROMBO TIME 34.9 SECONDS (20.0-32.1); INTERNATIONAL NORM RATIO 1.1 (2.0-3.5)
[2019-10-03 13:29] LABS: ALBUMIN 3.1 gm/dl (3.1-4.5); ALKALINE PHOSPHATASE 108 U/L (45-117); BUN 27 mg/dl (7-24); CHLORIDE 103 mmol/L (98-107); CREATININE 0.82 mg/dL (0.70-1.30); POTASSIUM 4.8 mmol/L (3.5-5.1); SGOT/AST 14 IU/L (3-35); SGPT/ALT 19 U/L (12-78); SODIUM 134 mmol/L (136-145); TOTAL PROTEIN 8.2 gm/dL (6.4-8.2)
[2019-10-03 13:34] LABS: TROPONIN I < 0.015 ng/ml (<0.045)
[2019-10-03] MEDS ORDERED: BENGAY ULTRA S1 EACH T (15:15)
== END 2019-10-03 15:52 | disposition other institution (70) ==
LOC: ED 12:36
PROVIDERS: Family Medicine
DX: M19.012 Primary osteoarthritis, left shoulder (principal); I10 Essential (primary) hypertension; E11.9 Type 2 diabetes mellitus without complications; J44.9 Chronic obstructive pulmonary disease, unspecified; I48.91 Unspecified atrial fibrillation; Z79.899 Other long term (current) drug therapy; Z79.82 Long term (current) use of aspirin; Z79.2 Long term (current) use of antibiotics

== ENCOUNTER 2021-10-05 09:43 | Emergency (ER) | payer MEDICARE ==
[~2021-10-05] VITALS: Ht 175.2 cm; Wt 80.4 kg
[~2021-10-05 09:43] MED LIST changes: +BENGAY ULTRA S1 EACH T
[2021-10-05 13:25] LABS: BASO # 0.1 10*3/uL (0.0-0.1); BASO % 0.6 % (0.0-1.0); EOS # 0.7 10*3/uL (0.0-0.4); EOS % 6.6 % (1.0-4.0); HEMATOCRIT 32.3 % (42.0-52.0); LYMPH # 2.9 10*3/uL (1.3-4.4); LYMPH % 26.1 % (27.0-41.0); MEAN CELL VOLUME 98.5 fl (80.0-94.0); MEAN CORPUSCULAR HGB 30.8 pg (27.0-31.0); MEAN CORPUSCULAR HGB CONC 31.3 g/dl (33.0-37.0); MEAN PLATELET VOLUME 8.8 fl (9.6-12.3); MONO % 8.8 % (3.0-9.0); NEUT # 6.3 10*3/uL (2.3-7.9); NEUT % 57.6 % (47.0-73.0); PLATELET COUNT AUTOMATED 198 10*3/uL (130-400); RED BLOOD COUNT 3.28 10*6/uL (4.50-5.90); RED CELL DISTRI WIDTH 12.9 % (0-14.5)
[2021-10-05 13:37] LABS: CREATININE 1.77 mg/dL (0.70-1.30); POTASSIUM 5.6 mmol/L (3.5-5.1)
== END 2021-10-05 13:59 ==
LOC: ED 09:43
PROVIDERS: Emergency Medicine
DX: E87.5 Hyperkalemia (principal)

== ENCOUNTER 2021-11-04 07:36 | Emergency (ER) | payer OTHER ==
[~2021-11-04] VITALS: Wt 80.7 kg
[2021-11-04 08:30] LABS: BASO # 0.1 10*3/uL (0.0-0.1); BASO % 1.2 % (0.0-1.0); EOS # 0.8 10*3/uL (0.0-0.4); EOS % 9.3 % (1.0-4.0); HEMATOCRIT 30.7 % (42.0-52.0); LYMPH # 2.4 10*3/uL (1.3-4.4); LYMPH % 28.4 % (27.0-41.0); MEAN CELL VOLUME 97.8 fl (80.0-94.0); MEAN CORPUSCULAR HGB 30.9 pg (27.0-31.0); MEAN CORPUSCULAR HGB CONC 31.6 g/dl (33.0-37.0); MEAN PLATELET VOLUME 8.7 fl (9.6-12.3); MONO # 0.7 10*3/uL (0.1-1.0); NEUT # 4.4 10*3/uL (2.3-7.9); NEUT % 52.5 % (47.0-73.0); PLATELET COUNT AUTOMATED 397 10*3/uL (130-400); RED BLOOD COUNT 3.14 10*6/uL (4.50-5.90); RED CELL DISTRI WIDTH 14.3 % (0-14.5); WHITE BLOOD COUNT 8.4 10*3/uL (4.8-10.8)
[2021-11-04 08:37] LABS: BILIRUBIN Negative (Negative); BLOOD Negative (Negative); CLARITY Clear (Clear); COLOR Yellow (Yellow); GLUCOSE Negative (Negative); KETONE Negative (Negative); LEUKO ESTERASE Negative (Negative); NITRITE Negative (Negative); PH 5.5 (4.5-8.0); SPECIFIC GRAVITY 1.015 (1.001-1.030); UROBILINOGEN 0.2 E.U./dl (0.0-1.0)
[2021-11-04 08:42] LABS: ACT PARTIAL THROMBO TIME 31.9 SECONDS (20.0-32.1)
[2021-11-04 08:47] LABS: ALKALINE PHOSPHATASE 129 U/L (45-117); BUN 31 mg/dl (7-24); CHLORIDE 109 mmol/L (98-107); CREATININE 1.08 mg/dL (0.70-1.30); LIPASE 89 U/L (73-393); POTASSIUM 4.2 mmol/L (3.5-5.1); SGOT/AST 20 IU/L (3-35); SGPT/ALT 20 U/L (12-78); SODIUM 140 mmol/L (136-145); TOTAL PROTEIN 7.5 gm/dL (6.4-8.2)
[2021-11-04 08:48] LABS: BACTERIA 1+; EPITHELIAL CELLS 0-2; RBC 0-2 rbc/hpf (0-2); WBC 0-2 wbc/hpf (0-5)
== END 2021-11-04 11:58 ==
LOC: ED 07:36
PROVIDERS: Emergency Medicine
DX: J20.9 Acute bronchitis, unspecified (principal)

== ENCOUNTER 2023-03-27 18:55 | Emergency (ER) | payer OTHER ==
[~2023-03-27 18:55] MED LIST changes: +CEFUROXIME AXE250 MG PO; +CLARITIN10 MG PO; +CORTISONE28 GM T; +DEPAKOTE ER250 MG PO; +DULCOLAX STOOL100 MG PO; +Depakote250 MG PO; +Ipratropium Brom3 ML INH; +LACTULOSE20 GM/30 M PO; +LEVOXYL50 MCG PO; +LISINOPRIL5 MG PO; +MELATONIN5 M1 SL; +METOPROLOL SUCC25 M2 PO; +MILK OF MA400 MG/51 PO; +NAMENDA10 MG PO; +NEURONTIN300 MG PO; +OCUVITE PO; +ONDANSETRON ODT8 MG PO; +PEPCID40 MG PO; +PROBIOTIC250 MG PO; +REMERON15 M2 PO; +RIVASTIGMINE TAR6 M1 PO; +TAMIFLU 75MG CA75 MG PO; +VANCOMYCIN HCL250 MG PO; +[UNRECOGNIZED DRUG - OTHER] PO
== END 2023-03-27 19:57 | disposition home or self-care (01) ==
LOC: ED 18:55
DX: S00.01XA Abrasion of scalp, initial encounter (principal); M25.562 Pain in left knee; I11.0 Hypertensive heart disease with heart failure; M19.90 Unspecified osteoarthritis, unspecified site; E11.40 Type 2 diabetes mellitus with diabetic neuropathy, unspecified; F32.A Depression, unspecified; I48.91 Unspecified atrial fibrillation; I50.9 Heart failure, unspecified; K21.9 Gastro-esophageal reflux disease without esophagitis; J44.9 Chronic obstructive pulmonary disease, unspecified; Z98.890 Other specified postprocedural states; Z90.49 Acquired absence of other specified parts of digestive tract; Z90.89 Acquired absence of other organs; F17.200 Nicotine dependence, unspecified, uncomplicated; W05.0XXA Fall from non-moving wheelchair, initial encounter; Y93.89 Activity, other specified; Y92.129 Unspecified place in nursing home as the place of occurrence of the external cause; Y99.8 Other external cause status

== ENCOUNTER → 2023-04-05 | Outpatient (CLI) | payer OTHER | END | disposition home or self-care (01) | LOC: ORTHO 12:25 | PROVIDERS: ATTEND Orthopaedic Surgery | DX: S42.035A Nondisplaced fracture of lateral end of left clavicle, initial encounter for closed fracture (principal); M89.8X1 Other specified disorders of bone, shoulder; X58.XXXA Exposure to other specified factors, initial encounter; Y93.89 Activity, other specified; Y92.89 Other specified places as the place of occurrence of the external cause; Y99.8 Other external cause status ==

== ENCOUNTER → 2023-05-12 | Outpatient (CLI) | payer OTHER | END | disposition home or self-care (01) | LOC: ORTHO 02:53 | PROVIDERS: ATTEND Orthopaedic Surgery | DX: S42.025D Nondisplaced fracture of shaft of left clavicle, subsequent encounter for fracture with routine healing (principal); X58.XXXD Exposure to other specified factors, subsequent encounter ==

== ENCOUNTER → 2023-07-14 | Outpatient (CLI) | payer OTHER | END | disposition home or self-care (01) | LOC: ORTHO 02:57 | PROVIDERS: ATTEND Orthopaedic Surgery | DX: S42.025D Nondisplaced fracture of shaft of left clavicle, subsequent encounter for fracture with routine healing (principal); X58.XXXD Exposure to other specified factors, subsequent encounter ==